=== PATIENT | female | born 1985 | race African-American/Black ===

== ENCOUNTER 2016-12-08 07:46 | Emergency (ER) | payer OTHER, BC ==
[~2016-12-08] VITALS: Ht 162.6 cm; Wt 95.0 kg
[~2016-12-08 07:46] MED LIST: DICL50 PO; TAB-TAB PO
[2016-12-08 07:50] VITALS: BP 130/89; PULSE 77; RESP 19; TEMP 97.7; O2SAT 100
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
[2016-12-08] MEDS ORDERED: MORPHINE SULFATE 4 MG/ML INJ IV PUSH ONE ×3 (09:30→13:00)
[2016-12-08] MEDS ORDERED: ONDANSETRON HCL 4 MG/2 ML VIAL IV PUSH ONE (09:30)
[2016-12-08 10:25] VITALS: BP 113/50; PULSE 80; RESP 18; O2SAT 100
[2016-12-08 10:43] LABS: AUTOMATED NEUTROPHIL # 13.9 TH/MM3 (1.8-7.7); BASOPHIL % 0.1 % (0.0-2.0); HEMO FLAGS DIFF FINAL; LYMPH % 3.8 % (9.0-44.0); LYMPHOCYTE # 0.6 TH/MM3 (1.0-4.8); MEAN CELL VOLUME 83.6 FL (80.0-100.0); MEAN CORPUSCULAR HGB CONC 33.4 % (32.0-36.0); MONO % 4.4 % (0.0-8.0); NEUT % 91.7 % (16.0-70.0); PLATELET COUNT 212 TH/MM3 (150-450); RED BLOOD COUNT 4.19 MIL/MM3 (4.00-5.30); RED CELL DISTRIBUTION WIDTH 14.8 % (11.6-17.2); WHITE BLOOD COUNT 15.2 TH/MM3 (4.0-11.0)
[2016-12-08 11:53] LABS: ANION GAP 10 MEQ/L (5-15); AST (GOT) 26 U/L (15-37); BICARBONATE 24.5 MEQ/L (21.0-32.0); BLOOD UREA NITROGEN 7 MG/DL (7-18); CHLORIDE 101 MEQ/L (98-107); GLOMERULAR FILTRATION RATE 111 ML/MIN (>89); POTASSIUM 3.5 MEQ/L (3.5-5.1); SODIUM (NA) 135 MEQ/L (136-145)
[2016-12-08 11:58] LABS: ALKALINE PHOSPHATASE 64 U/L (45-117); ALT (GPT) 23 U/L (10-53); BETA HCG QUANT LESS THAN 1 MIU/ML (0-5); TOTAL BILIRUBIN ADULT 0.4 MG/DL (0.2-1.0)
[2016-12-08 12:00] VITALS: BP 128/66; PULSE 74; RESP 16; O2SAT 98
[2016-12-08] MEDS ORDERED: PERI8.6T PO (12:51)
[2016-12-08] MEDS ORDERED: PERC5TAB12 PO (12:51)
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
[2016-12-09] MEDS ORDERED: IBUP800T23 PO (20:38)
== END 2016-12-08 13:41 | disposition home or self-care (01) ==
LOC: NEPC 07:46
DX: S92.014A Nondisplaced fracture of body of right calcaneus, initial encounter for closed fracture (principal); V48.0XXA Car driver injured in noncollision transport accident in nontraffic accident, initial encounter
CPT/HCPCS: 72125; 73610; 73700; 80053; 84702; 85025; 96374; 96375; 96376; 99284; E0113; J2270; J2405

== ENCOUNTER 2016-12-09 19:36 | Emergency (ER) | payer OTHER, BC ==
[~2016-12-09] VITALS: Ht 162.6 cm; Wt 93.0 kg
[~2016-12-09 19:36] MED LIST changes: -DICL50 PO; +PERC5TAB12 PO; +PERI8.6T PO; -TAB-TAB PO
[2016-12-09 19:38] VITALS: BP 118/72; PULSE 99; RESP 18; TEMP 98; O2SAT 98
[2016-12-09] MEDS ORDERED: KETOROLAC TROMETHAMINE 60 MG/2 ML (IM) VIAL IM ONE (20:30)
[2016-12-09] MEDS ORDERED: IBUP800T23 PO (20:38)
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
[2016-12-09 20:54] VITALS: BP 120/70
== END 2016-12-09 21:01 | disposition home or self-care (01) ==
LOC: NEPC 19:36
DX: S92.001D Unspecified fracture of right calcaneus, subsequent encounter for fracture with routine healing (principal); R01.1 Cardiac murmur, unspecified; X58.XXXD Exposure to other specified factors, subsequent encounter
CPT/HCPCS: 96372; 99283; E0113; J1885

== ENCOUNTER 2016-12-12 15:34 | Emergency (ER) | payer OTHER, BC ==
[~2016-12-12] VITALS: Ht 162.6 cm; Wt 100.0 kg
[~2016-12-12 15:34] MED LIST changes: +IBUP800T23 PO
[2016-12-12 15:35] VITALS: BP 111/57; PULSE 81; RESP 12; TEMP 98.6; O2SAT 99
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
[2016-12-12] MEDS ORDERED: PERC5TAB12 PO (16:30)
[2016-12-12] MEDS ORDERED: oxyCODONE/ACETAMINOPHEN 5 MG/325 MG TAB PO ONE (16:45)
[2016-12-12] MEDS ORDERED: oxyCODONE/ACETAMINOPHEN 10 MG/325 MG TAB PO ONE (16:45)
== END 2016-12-12 16:51 | disposition home or self-care (01) ==
LOC: NEPB 15:34
DX: S92.001D Unspecified fracture of right calcaneus, subsequent encounter for fracture with routine healing (principal); R20.9 Unspecified disturbances of skin sensation; R01.1 Cardiac murmur, unspecified; V49.9XXD Car occupant (driver) (passenger) injured in unspecified traffic accident, subsequent encounter
CPT/HCPCS: 99283

== ENCOUNTER 2016-12-18 05:42 | Inpatient (IN) | payer OTHER, BC ==
[~2016-12-18] VITALS: Ht 162.6 cm; Wt 102.4 kg
[2016-12-18] MEDS ORDERED: VANCOMYCIN 1000 MG/NS 250 ML (for <70 kg) IV SCH ×2 (06:30)
[2016-12-18] MEDS: CHLORHEXIDINE GLUCONATE 4% SOLN 120 ML BTL TOP SCH (06:30)
[2016-12-18] MEDS ORDERED: ceFAZolin 2 GM PREMIX 50 ML IV SCH (06:30)
[2016-12-18] MEDS ORDERED: SODIUM CHLORID 0.9% 500 ML IV SCH (06:45)
[2016-12-18] MEDS ORDERED: INSULIN HUMAN REGULAR 1,000 UNITS/10 ML VIAL SQ PRN (06:45)
[2016-12-18] MEDS ORDERED: LACTATED RINGER'S 1000 ML IV SCH (06:45)
[2016-12-18] MEDS ORDERED: METOPROLOL TARTRATE 25 MG TAB PO PRN (06:45)
[2016-12-18 07:11] VITALS: BP 120/72; PULSE 78; RESP 16; TEMP 98.7; O2SAT 100
[2016-12-18] MEDS ORDERED: PERC7.5T13 PO (07:40)
[2016-12-18] MEDS ORDERED: XARE10TA PO (07:40)
[2016-12-18] MEDS ORDERED: WALKER/ADULT/FO1 MIS (07:40)
[2016-12-18] MEDS ORDERED: FAMOTIDINE 20 MG/2 ML VIAL ONE (08:25)
[2016-12-18] MEDS ORDERED: MIDAZOLAM HCL 2 MG/2 ML VIAL ONE (08:25)
[2016-12-18] MEDS ORDERED: DEXAMETHASONE SOD PHOS 4 MG/ML VIAL ONE (08:25)
[2016-12-18] MEDS ORDERED: ceFAZolin INJ 1,000 MG VIAL IV ONE (09:13)
[2016-12-18] MEDS ORDERED: GENTAMICIN SULFATE 80 MG/2 ML VIAL IRRIGATION ONE (09:29)
--- NOTE | 2016-12-18 10:34 | EKG ---
Date Performed: 12/18/2016 Time Performed: 07:57:44 PTAGE: 31 years EKG: Sinus rhythm NORMAL ECG NO PREVIOUS TRACING DOCTOR: Sergio Solares Interpretating Date/Time 12/18/2016 10:32:40
[2016-12-18] MEDS ORDERED: SODIUM CHLORIDE 0.9% FLUSH 5 ML FLUSH IVF PRN (11:15)
[2016-12-18] MEDS ORDERED: ONDANSETRON HCL 4 MG/2 ML VIAL IVP PRN (11:15)
[2016-12-18] MEDS ORDERED: NALOXONE HCL 0.4 MG/ML AMP IV PRN (11:15)
[2016-12-18] MEDS ORDERED: ACETAMINOPHEN/HYDROcodone 325 MG/10 MG TAB PO PRN (11:15)
[2016-12-18] MEDS ORDERED: Post-op Orders (for Pharmacy) MISC XX ONE (11:15)
[2016-12-18] MEDS ORDERED: diphenhydrAMINE HCL 25 MG CAP PO PRN ×2 (11:15)
--- NOTE | 2016-12-18 11:16 | PD.OP ---
cc: Rei Kent MD Operative Report Date of Surgery: Dec 18, 2016 Preoperative Diagnosis: Comminuted right calcaneus fracture Postoperative Diagnosis: Procedure: Open reduction internal fixation right calcaneus Anesthesia: Gen. Surgeon: Rei Kent Trauma Doctor(s): ROBY Rojo PA-C The surgical procedure was assisted by my physician gallery assistant. My P.A. presence was necessary throughout this case for the manipulation and positioning of the surgical extremity. My P.A. was assisting me throughout the duration of this procedure. The skill set of a physician gallery assistant was medically necessary to complete this procedure. During the surgical case the surgical technician was working at the back table and the physician gallery assistant was directly assisting me. Operation and Findings: Tourniquet time -- 73 minutes at 250 mmHg Informed consent obtained, operative site was marked. The foot and ankle were seen and evaluated this morning. Soft tissue swelling had significantly improved and appeared to be ready for surgery. She was brought to the operating room and placed on the operating room table. She was given intravenous sedation , general endotracheal anesthesia. She received IV antibiotics and was placed in the lateral decubitus position. Foot and leg were prepped with alcohol, followed by Hibiclens, draped in usual sterile fashion. A time out procedure was preformed. The procedure began with a 4 centimeter incision over the lateral aspect of the calcaneus centers over the subtalar joint. A full thickness flap was carefully elevated. The perineal tendons were also mobilized. Periosteum was elevated off the calcaneous. At this point the leg was elevated. The tourniquet was inflated. Attention was now turned to exposure of the calcaneus. The lateral wall was comminuted. A Steinmann pin was placed into the talus and into the calcaneus. Laminar management trainee marketing was now placed to help distract the fracture. Articular surface was now visualized. Articular surface was in several fragments. The medial fragment was elevated and reduced up to the talus and the K-wire was used to hold provisional fixation. Next, the lateral and posterior fragments of the posterior facet were reduced. The talus was used as a template for reduction. The K-wires were used to hold provisional fixation. The laminar management trainee marketing was now used to distract the posterior tuberosity. A Shands pin was placed to help joystick the centrex radio operator tuberosity into appropriate position. Multiple K-wires result provisional fixation. Multiplanar fluoroscopy confirmed well aligned fracture. The anterior process was now reduced. This keyed into appropriate position. Additional K wires were used to hold provisional fixation. At this point a Synthes calcaneus plate was selected. Plate was placed underneath the peroneal tendons. Plate was provisionally held the bone with K wires. 2.7 cortical lag screws were placed through the plate to compress the posterior facet fragments. Good compression was obtained. Additional cortical and locking screws were placed into the plate. 4 small percutaneous incisions were made around the posterior heel. 4 long 3.5 cortical screws were placed in the posterior tuberosity into the anterior process. All screws were predrilled and premeasured for appropriate lengths. Fluoroscopy confirmed appropriate alignment of fracture. Final fluoroscopy confirmed well aligned fracture with well-placed hardware. Wound was thoroughly irrigated. Tourniquet was released. Hemostasis was confirmed. Fascia was closed with 0 Vicryl, subcutaneous tissues closed with 3-0 Vicryl, and skin was closed with 3-0 nylon. Sterile dressings were applied. Patient was placed into a well molded well-padded splint. Patient was transferred to recovery in stable condition. Rei Kent MD Dec 18, 2016 11:16
[2016-12-18] MEDS ORDERED: *morphine SULFATE 8 MG/ML PERIprocedure ONLY ONE (11:40)
[2016-12-18] MEDS ORDERED: MORPHINE SULFATE 4 MG/ML INJ ONE (11:45)
[2016-12-18] MEDS ORDERED: DO NOT ADM ANY ANTICOAGULANT DRUGS XX PRN (11:45)
[2016-12-18] MEDS ORDERED: fentaNYL CITRATE 250 MCG/5 ML AMP ONE ×2 (11:45)
[2016-12-18] MEDS ORDERED: *MEPERIDINE 25 MG INJ VIAL PERIprocedural Use ONLY ONE (11:47)
[2016-12-18] MEDS: KETOROLAC TROMETHAMINE 60 MG/2 ML (IM) VIAL IM SCH ×2 (12:00→17:43)
[2016-12-18] MEDS ORDERED: PROPOFOL 200 MG/20 ML AMP IV ONE (12:00)
[2016-12-18] MEDS ORDERED: LACTATED RINGER'S 1000 ML INJ 1,000 ML IV ONE (12:00)
[2016-12-18] MEDS ORDERED: ONDANSETRON HCL 4 MG/2 ML VIAL IV PUSH ONE (12:00)
[2016-12-18] MEDS: MORPHINE SULFATE 30 MG/30 ML PCA IV SCH (12:19)
[2016-12-18] MEDS: LACTATED RINGER'S 1000 ML INJ 1,000 ML IV SCH ×2 (13:55→22:28)
[2016-12-18] MEDS: PCA - TOTAL MG MORPHINE DELIVERED PER SHIFT SCH ×2 (14:00→22:00)
[2016-12-18 14:45] VITALS: BP 115/60; PULSE 84; RESP 16; TEMP 96.8; O2SAT 100
--- NOTE | 2016-12-18 14:45 | RADRPT ---
EXAM DATE/TIME: 12/18/2016 10:52 [facility] COMPARISON: No previous studies available for comparison. INDICATIONS : ORIF right calcaneus. MEDICAL HISTORY : None. SURGICAL HISTORY : None. ENCOUNTER: Subsequent ACUITY: 1 week PAIN SCORE: Non-responsive. LOCATION: Right heel. FINDINGS: Surgical hardware is seen at the calcaneus. The hardware appears well placed. The sub talar joint appears normally aligned. CONCLUSION: Successful open reduction and internal fixation of a calcaneal fracture. Donnie Sosa MD on December 18, 2016 at 14:38 Board Certified Radiologist. This report was verified electronically.
[2016-12-18 16:15] VITALS: BP 122/73; PULSE 78; PULSE 80; RESP 16; TEMP 97.4; O2SAT 97
[2016-12-18] MEDS: ceFAZolin 2 GM PREMIX 50 ML IV SCH (17:43)
[2016-12-18 20:00] VITALS: BP 111/59; PULSE 96; RESP 16; TEMP 97.3; O2SAT 100
[2016-12-18] MEDS: SODIUM CHLORIDE 0.9% FLUSH 5 ML FLUSH IVF SCH (21:00)
[2016-12-18] MEDS: VANCOMYCIN INJ 1,000 MG in SODIUM CHLOR 0.9% 250 ML INJ 250 ML IV SCH (22:28)
[2016-12-19] VITALS (7 sets, daily range): BP systolic 104–118; BP diastolic 55–67; PULSE 79–93; RESP 16–18; TEMP 96.4–100; O2SAT 97–100
[2016-12-19] MEDS: KETOROLAC TROMETHAMINE 60 MG/2 ML (IM) VIAL IM SCH ×4 (00:25→18:04)
[2016-12-19] MEDS: ceFAZolin 2 GM PREMIX 50 ML IV SCH ×4 (00:26→23:41)
[2016-12-19] MEDS: PCA - TOTAL MG MORPHINE DELIVERED PER SHIFT SCH ×4 (06:00→23:40)
[2016-12-19] MEDS: CHLORHEXIDINE GLUCONATE 4% SOLN 120 ML BTL TOP SCH ×2 (06:30→23:41)
[2016-12-19] MEDS: MORPHINE SULFATE 30 MG/30 ML PCA IV SCH (06:37)
--- NOTE | 2016-12-19 07:02 | PD.ORT.PN ---
Subjective Subjective Remarks Difficulty with pain control. Has been using pain pump, has not begun taking oral pain medication Objective Vitals Vital Signs Date Time Temp Pulse Resp B/P Pulse Ox O2 Delivery O2 Flow Rate FiO2 12/19/16 04:00 97.1 84 17 105/65 100 12/19/16 00:00 98.0 93 16 113/67 100 12/18/16 20:00 97.3 96 16 111/59 100 12/18/16 16:15 97.4 80 16 122/73 97 12/18/16 14:45 96.8 84 16 115/60 100 12/18/16 14:15 98.1 80 16 135/80 99 Nasal Cannula 3 12/18/16 14:00 85 15 134/83 99 Nasal Cannula 3 12/18/16 13:30 87 15 127/81 99 Nasal Cannula 3 12/18/16 13:00 92 17 136/85 99 Nasal Cannula 3 12/18/16 12:30 100 17 144/92 99 Nasal Cannula 3 12/18/16 12:19 15 12/18/16 12:15 100 16 133/85 99 Nasal Cannula 3 12/18/16 12:00 96 16 136/86 99 Nasal Cannula 3 12/18/16 11:45 97 15 138/86 100 Nasal Cannula 3 12/18/16 11:38 97.8 97 15 138/86 100 Nasal Cannula 3 12/18/16 07:11 98.7 78 16 120/72 100 I/O 12/18/16 12/18/16 12/18/16 12/19/16 12/19/16 12/19/16 07:00 15:00 23:00 07:00 15:00 23:00 Intake Total 1675 ml 1615 ml 1018 ml Output Total 1050 ml Balance 625 ml 1615 ml 1018 ml Intake Oral 720 ml 480 ml IV Total 175 ml 895 ml 538 ml Other 1500 ml Output Urine Total 1000 ml Estimated Blood Loss 50 ml # Voids 1 1 2 # Bowel Movements 0 0 Imaging Last 72 hours Impressions Foot X-Ray 12/18/16 0000 Signed Impressions: Service Date/Time: Sunday, December 18, 2016 10:52 - CONCLUSION: Successful open reduction and internal fixation of a calcaneal fracture. Donnie Sosa MD Objective Remarks Right lower extremity: Splint intact with minimal drainage. Intact sensation in toes. Capillary refills. Is able to move toes but limited by pain. Assessment & Plan Assessment and Plan Right calcaneus ORIF POD 1 Nonweightbearing and elevation Maintain splint Begin oral pain medications Plan for possible discharge tomorrow to home Elevation RAMESH ZIEGLER PA-C Dec 19, 2016 07:02
[2016-12-19] MEDS: LACTATED RINGER'S 1000 ML INJ 1,000 ML IV SCH ×3 (07:07→23:40)
[2016-12-19] MEDS: SODIUM CHLORIDE 0.9% FLUSH 5 ML FLUSH IVF SCH ×2 (08:01→20:32)
[2016-12-19] MEDS: VANCOMYCIN INJ 1,000 MG in SODIUM CHLOR 0.9% 250 ML INJ 250 ML IV SCH (08:01)
[2016-12-19] MEDS ORDERED: INFLUENZA VIRUS VACCINE (QUADRIVALENT) 0.5 ML SYR IM ONE (10:00)
[2016-12-19] MEDS: ACETAMINOPHEN/HYDROcodone 325 MG/10 MG TAB PO PRN ×2 (12:37→18:43)
[2016-12-19] MEDS: MORPHINE SULFATE 4 MG/ML INJ IV PUSH PRN (23:42)
[2016-12-20 00:28] VITALS: BP 104/70; PULSE 82; RESP 16; TEMP 96.9; O2SAT 100
[2016-12-20] MEDS: ACETAMINOPHEN/HYDROcodone 325 MG/10 MG TAB PO PRN ×5 (01:10→23:07)
--- NOTE | 2016-12-20 06:30 | PD.ORT.PN ---
Subjective Subjective Remarks POD 2 s/p ORIF right calcaneus doing well. states that she "slept on it wrong" last night and is now having pain. otherwise, out of bed with walker Objective Vitals Vital Signs Date Time Temp Pulse Resp B/P Pulse Ox O2 Delivery O2 Flow Rate FiO2 12/20/16 00:28 96.9 82 16 104/70 100 12/19/16 20:00 100.0 84 17 118/64 100 12/19/16 16:00 96.5 79 18 107/55 100 12/19/16 14:31 16 12/19/16 14:30 16 12/19/16 14:00 16 12/19/16 12:37 100 21 12/19/16 11:56 96.4 88 18 104/56 97 12/19/16 09:41 16 12/19/16 08:00 97.4 89 18 118/56 98 I/O 12/19/16 12/19/16 12/19/16 12/20/16 12/20/16 12/20/16 07:00 15:00 23:00 07:00 15:00 23:00 Intake Total 1018 ml 960 ml 573 ml Balance 1018 ml 960 ml 573 ml Intake Oral 480 ml 960 ml 480 ml IV Total 538 ml 93 ml # Voids 2 4 4 # Bowel Movements 0 0 2 Imaging Last 72 hours Impressions Foot X-Ray 12/18/16 0000 Signed Impressions: Service Date/Time: Sunday, December 18, 2016 10:52 - CONCLUSION: Successful open reduction and internal fixation of a calcaneal fracture. Donnie Sosa MD Objective Remarks Right lower extremity: Splint intact with minimal drainage. Intact sensation in toes. Capillary refills. Is able to move toes but limited by pain. Assessment & Plan Assessment and Plan 1) Right calcaneus s/p ORIF POD 2 Nonweightbearing and elevation Maintain splint Begin oral pain medications Plan for possible discharge today f/u with Krystal or MANOJ in 2 weeks Marcellus Parra Dec 20, 2016 06:30
--- NOTE | 2016-12-20 06:39 | HHI.DS ---
Discharge Summary Admission Date Dec 18, 2016 at 12:06 Discharge Date: Dec 20, 2016 Admitting Diagnosis Right calcaneus fracture Diagnosis: (1) Calcaneus fracture, right Diagnosis: Principal Procedures ORIF right calcaneus PE at Discharge Right lower extremity: Splint intact with minimal drainage. Intact sensation in toes. Capillary refills. Is able to move toes but limited by pain. Hospital Course Admitted from outpatient for an ORIF of right calcaneus after suffering a fall the latter. She tolerated the procedure well. She was admitted to [address] [place] [address]. She is remaining nonweightbearing on the right leg. She has significant pain postop day 1. However, possibly due to the pain had improved. She is angling with a walker, retaining her splint and nonweightbearing status, hemodynamically stable, and fit for discharge home. She will be discharged home today and remain nonweightbearing. I advised her to elevate the foot as much as possible. She'll follow up in office with Dr. Kent or his PA and 2 weeks. Pt Condition on Discharge: Good Discharge Disposition: Discharge Home Discharge Instructions Diet Instructions: As Tolerated, No Restrictions Activities You Can Perform: Non Weight Bearing Follow up Referrals: Orthopedics - 01/01/17 @ [facility] with Rei Kent MD New Medications: Oxycodone-Acetaminophen (Percocet) 7.5-325 mg Tab 1 TAB PO Q4H PRN PAIN #60 Ref 0 TAB Rivaroxaban (Xarelto) 10 Mg Tab 10 MG PO DAILY Blood Clot Prevention #14 Ref 0 TAB Walker/Adult/Folding (Walker/Adult/Folding) 1 Mis Mis 1 EA .ROUTE DIRECTED #1 Ref 0 EA Continued Medications: Sennosides-Docusate Sodium (Karley-Colace) 8.6-50 Mg Tab 1 TAB PO BID Constipation #20 Ref 0 TAB Discontinued Medications: Ibuprofen (Ibuprofen) 800 Mg Tab 800 MG PO Q6HR PRN PAIN Days 7 Ref 0 TAB Oxycodone-Acetaminophen (Percocet) 5-325 mg Tab 1-2 TAB PO Q4H PRN PAIN #30 Ref 0 TAB Marcellus Parra Dec 20, 2016 06:39
[2016-12-20] MEDS: ceFAZolin 2 GM PREMIX 50 ML IV SCH (07:47)
[2016-12-20] MEDS: SODIUM CHLORIDE 0.9% FLUSH 5 ML FLUSH IVF SCH ×2 (07:47→20:04)
[2016-12-20 07:53] VITALS: BP 145/63; PULSE 100; RESP 18; TEMP 98.9; O2SAT 100
[2016-12-20] MEDS: MORPHINE SULFATE 4 MG/ML INJ IV PUSH PRN (11:38)
[2016-12-20] MEDS: LACTATED RINGER'S 1000 ML INJ 1,000 ML IV SCH ×2 (11:43→20:04)
[2016-12-20 12:00] VITALS: BP 120/64; PULSE 100; RESP 18; TEMP 97.1; O2SAT 100
[2016-12-20] MEDS ORDERED: ACETAMINOPHEN/HYDROcodone 325 MG/10 MG TAB PO PRN (13:30)
[2016-12-20] MEDS: PCA - TOTAL MG MORPHINE DELIVERED PER SHIFT SCH ×2 (13:34→20:04)
[2016-12-20 16:00] VITALS: BP 118/72; PULSE 100; RESP 18; TEMP 97.1; O2SAT 100
[2016-12-20 21:10] VITALS: BP 116/71; PULSE 109; RESP 17; TEMP 97.8; O2SAT 100
[2016-12-21 00:45] VITALS: BP 121/60; PULSE 95; RESP 16; TEMP 97.5; O2SAT 100
[2016-12-21] MEDS: ACETAMINOPHEN/HYDROcodone 325 MG/10 MG TAB PO PRN ×4 (03:08→13:13)
[2016-12-21] MEDS: PCA - TOTAL MG MORPHINE DELIVERED PER SHIFT SCH ×2 (03:18→14:00)
[2016-12-21] MEDS ORDERED: HYDR-3366 PO (06:27)
--- NOTE | 2016-12-21 06:34 | PD.ORT.PN ---
Subjective Subjective Remarks Doing well with pain control. No other complaints Objective Vitals Vital Signs Date Time Temp Pulse Resp B/P Pulse Ox O2 Delivery O2 Flow Rate FiO2 12/21/16 00:45 97.5 95 16 121/60 100 12/20/16 21:10 97.8 109 17 116/71 100 12/20/16 16:00 97.1 100 18 118/72 100 12/20/16 12:00 97.1 100 18 120/64 100 12/20/16 07:53 98.9 100 18 145/63 100 I/O 12/20/16 12/20/16 12/20/16 12/21/16 12/21/16 12/21/16 07:00 15:00 23:00 07:00 15:00 23:00 Intake Total 480 ml 600 ml 480 ml Balance 480 ml 600 ml 480 ml Intake Oral 480 ml 600 ml 480 ml # Voids 2 6 3 # Bowel Movements 0 0 0 Imaging Last 72 hours Impressions Foot X-Ray 12/18/16 0000 Signed Impressions: Service Date/Time: Sunday, December 18, 2016 10:52 - CONCLUSION: Successful open reduction and internal fixation of a calcaneal fracture. Donnie Sosa MD Procedures ORIF right calcaneus Objective Remarks Right lower extremity: Splint intact with minimal drainage. Intact sensation in toes. Capillary refills. Is able to move toes but limited by pain. Assessment & Plan Problem List: (1) Calcaneus fracture, right Assessment and Plan 1) Right calcaneus s/p ORIF POD 3 Nonweightbearing and elevation Maintain splint oral pain medications Plan for discharge today f/u with Krystal or MANOJ in 2 weeks RAMESH ZIEGLER PA-C Dec 21, 2016 06:34
[2016-12-21 08:00] VITALS: BP 118/69; PULSE 95; RESP 19; TEMP 98.1; O2SAT 99
[2016-12-21] MEDS: SODIUM CHLORIDE 0.9% FLUSH 5 ML FLUSH IVF SCH (08:51)
[2016-12-21] MEDS: LACTATED RINGER'S 1000 ML INJ 1,000 ML IV SCH (09:07)
[2016-12-21 12:00] VITALS: BP 124/75; PULSE 88; RESP 19; TEMP 97.6; O2SAT 100
== END 2016-12-21 15:54 | disposition home or self-care (01) | DRG 505 ==
LOC: HSDC 05:42 → HSDI 12:06 → N06A 15:18
PROVIDERS: ADMIT Orthopaedic Surgery Orthopaedic Trauma; ATTEND Orthopaedic Surgery Orthopaedic Trauma
PROC: 0QSL04Z Reposition Right Tarsal with Internal Fixation Device, Open Approach (ICD-10-PCS; principal; 2016-12-18 08:44)
DX: S92.001A Unspecified fracture of right calcaneus, initial encounter for closed fracture (principal); V49.9XXA Car occupant (driver) (passenger) injured in unspecified traffic accident, initial encounter
CPT/HCPCS: 73650; 76000; 90471; 90686; 93005; 94150; C1713; G0008; J0690; J1100; J1580; J1885; J2175; J2250; J2270; J2405; J3010; J3370; J7050; J7120; Q2038

== ENCOUNTER 2017-05-18 06:23 | Emergency (ER) | payer BC ==
[~2017-05-18] VITALS: Ht 165.1 cm; Wt 80.0 kg
[~2017-05-18 06:23] MED LIST changes: +HYDR-3366 PO; -IBUP800T23 PO; -PERC5TAB12 PO; +PERC7.5T13 PO; +WALKER/ADULT/FO1 MIS; +XARE10TA PO
[2017-05-18 06:28] VITALS: BP 112/64; PULSE 97; RESP 16; TEMP 98.4; O2SAT 97
--- NOTE | 2017-05-18 06:41 | PD ---
HPI Chief Complaint: Abdominal Pain Time Seen by Provider: 06:31 Travel History International Travel<30 days: No Contact w/Intl Traveler<30days: No Traveled to known affect area: No History of Present Illness HPI 31-year-old at approximately 11 weeks 1 day here with complaint of abdominal pain. Patient has had 2 days of a crampy pain within the lower abdomen. This is intermittent. She states it feels like gaseous distention as though she needs have flatus but does not. She denies any severe cramps like menstrual period, vaginal bleeding or spotting. No fevers chills, urinary symptoms PFSH Past Medical History Cancer: No Cardiovascular Problems: Yes (HEART MURMUR) Diabetes: No Diminished Hearing: No Endocrine: No Genitourinary: No Hepatitis: No Hiatal Hernia: No Immune Disorder: No Musculoskeletal: No Neurologic: No Psychiatric: No Reproductive: No Respiratory: No Thyroid Disease: No ?: : 1 Para: 1 Ovarian Cysts: Yes Past Surgical History AICD: No Section: Yes (X1) Gynecologic Surgery: Yes (C SECTION) Joint Replacement: No Oral Surgery: Yes (WISDOM TEETH) Pacemaker: No Social History Alcohol Use: Yes (OCCASIONAL) Tobacco Use: No Substance Use: No Allergies-Medications (Allergen,Severity, Reaction): Coded Allergies: No Known Allergies (Unverified , 05/18/17) Reported Meds & Prescriptions Reported Meds & Active Scripts Active [place] (Hydrocodone-Acetaminophen) 10-325 Mg Tab 1 Tab PO Q3HR PRN Xarelto (Rivaroxaban) 10 Mg Tab 10 Mg PO DAILY Percocet (Oxycodone-Acetaminophen) 7.5-325 mg Tab 1 Tab PO Q4H PRN Walker/Adult/Folding (Device) 1 Mis Mis 1 Ea .ROUTE DIRECTED Karley-Colace (Sennosides-Docusate Sodium) 8.6-50 Mg Tab 1 Tab PO BID Review of Systems Except as stated in HPI: all other systems reviewed are Neg Physical Exam Narrative GENERAL: Well-appearing female in no acute distress SKIN: Focused skin assessment warm/dry. HEAD: Normocephalic. EYES: . No scleral icterus. No injection or drainage. NECK: Supple CARDIOVASCULAR: Regular rate and rhythm. RESPIRATORY: No accessory muscle use. GASTROINTESTINAL: Abdomen soft, non-tender, nondistended. MUSCULOSKELETAL: Normal gait NEUROLOGICAL: Awake and alert. Normal speech. PSYCHIATRIC: Appropriate mood and affect; insight and judgment normal. Data Data Last Documented VS Vital Signs Date Time Temp Pulse Resp B/P Pulse Ox O2 Delivery O2 Flow Rate FiO2 05/18/17 06:28 98.4 97 16 112/64 97 Room Air Orders Ed Poc Ultrasound (05/18/17 ) MDM Medical Decision Making Medical Screen Exam Complete: Yes Emergency Medical Condition: Yes Medical Record Reviewed: Yes Differential Diagnosis 31-year-old at 11 weeks 1 days here with complaint of gaseous-type abdominal cramping. Differential includes , threatened AB, subchorionic hemorrhage, constipation, gas. Less likely ectopic given report of previous first trimester ultrasound. Abdominal examination is benign making peritoneal pathology less likely. Narrative Course Bedside ultrasound performed showing active IUP with heart rate. Patient reassured and discharged home Procedures Procedure Narrative Emergency Department Pelvic ultrasound was performed with patient consent. The curvilinear probe was used in the transverse and sagittal views within the suprapubic region revealing an intrauterine . heart rate was 170s. Diagnosis Primary Impression: Abdominal pain affecting Referrals: [facility] as needed Med/Other Pt SpecificInfo: No Change to Meds Disposition: 01 DISCHARGE HOME Condition: Stable Talia Menendez MD May 18, 2017 06:40
== END 2017-05-18 07:05 | disposition home or self-care (01) ==
LOC: NEPE 06:23
DX: O26.891 Other specified pregnancy related conditions, first trimester (principal); R10.33 Periumbilical pain; Z3A.11 11 weeks gestation of pregnancy
CPT/HCPCS: 99282

== ENCOUNTER 2017-06-01 03:08 | Emergency (ER) | payer BC ==
[~2017-06-01] VITALS: Ht 162.6 cm; Wt 97.6 kg
[2017-06-01 03:12] VITALS: BP 107/69; PULSE 79; TEMP 97.5; O2SAT 100
[2017-06-01] MEDS ORDERED: SODIUM CHLOR 0.9% 1000 ML INJ 1,000 ML IV ONE (04:08)
[2017-06-01] MEDS ORDERED: SODIUM CHLORIDE 0.9% FLUSH 10 ML FLUSH IVF PRN (04:15)
[2017-06-01 04:44] LABS: AUTOMATED NEUTROPHIL # 8.8 TH/MM3 (1.8-7.7); BASOPHIL % 0.3 % (0.0-2.0); EOSINOPHIL % 0.1 % (0.0-4.0); HEMATOCRIT 41.3 % (35.0-46.0); HEMO FLAGS DIFF FINAL; LYMPH % 8.8 % (9.0-44.0); LYMPHOCYTE # 0.9 TH/MM3 (1.0-4.8); MEAN CORPUSCULAR HGB CONC 33.3 % (32.0-36.0); MONO % 5.3 % (0.0-8.0); NEUT % 85.5 % (16.0-70.0); PLATELET COUNT 193 TH/MM3 (150-450); RED BLOOD COUNT 4.75 MIL/MM3 (4.00-5.30); WHITE BLOOD COUNT 10.3 TH/MM3 (4.0-11.0)
[2017-06-01] MEDS ORDERED: PROM25TA10 PO (04:53)
--- NOTE | 2017-06-01 04:53 | PD ---
HPI Chief Complaint: Abdominal Pain Time Seen by Provider: 04:07 Travel History International Travel<30 days: No Contact w/Intl Traveler<30days: No Traveled to known affect area: No History of Present Illness HPI Patient is a 31-year-old female who is 13 weeks with her second child, presents to emergency room with complaints of nausea and vomiting as well as left-sided neck pain since this morning. Reports that for the past couple days , she has had morning sickness, reports that she does not have any medications for nausea. Patient reports that she did see Dr. Busby who is her [employer], and she did have her 10 week ultrasound which showed a normal IUP. Patient reports no vaginal discharge or bleeding, reports that she is having some abdominal cramping. Patient reports that she was meaning to ask Dr. Busby for antiemetics on her next appointment. Patient also reports that she woke up this morning with a stiff neck. Reports that she has pain to the left side of her neck and reports "my neck feels stuck." Reports that this happens every 6 months or so. Denies any trauma. Denies fever/chills. Denies headache/dizzyness. PFSH Past Medical History Cancer: No Cardiovascular Problems: Yes (MURMUR) Diabetes: No Diminished Hearing: No Endocrine: No Genitourinary: No Hepatitis: No Hiatal Hernia: No Immune Disorder: No Musculoskeletal: No Neurologic: No Psychiatric: No Reproductive: No Respiratory: No Thyroid Disease: No ?: LMP: 03/02/17 : 2 Para: 1 Ovarian Cysts: Yes Past Surgical History AICD: No Section: Yes (X1) Gynecologic Surgery: Yes (C SECTION) Joint Replacement: No Oral Surgery: Yes (WISDOM TEETH) Pacemaker: No Other Surgery: Yes Social History Alcohol Use: No Tobacco Use: No Substance Use: No Allergies-Medications (Allergen,Severity, Reaction): Coded Allergies: No Known Allergies (Unverified , 06/01/17) Reported Meds & Prescriptions Reported Meds & Active Scripts Active Macrobid (Nitrofurantoin Monoh/Nitrofur Macro) 100 Mg Cap 100 Mg PO BID 10 Days Phenergan (Promethazine HCl) 25 Mg Tablet 25 Mg PO Q6H PRN Review of Systems General / Constitutional: No: Fever Eyes: No: Visual changes HENT: Positive: Neck Stiffness, No: Headaches Cardiovascular: No: Chest Pain or Discomfort Respiratory: No: Shortness of Breath Gastrointestinal: Positive: Nausea, Vomiting, Abdominal Pain Genitourinary: No: Urgency, Frequency, Dysuria, Nocturia, Pelvic Pain, Flank Pain, Vaginal Bleeding Musculoskeletal: No: Pain Skin: No Rash Neurologic: No: Weakness Psychiatric: No: Depression Endocrine: No: Polydipsia Hematologic/Lymphatic: No: Easy Bruising Physical Exam Narrative GENERAL: nad SKIN: Focused skin assessment warm/dry. HEAD: Atraumatic. Normocephalic. EYES: Pupils equal and round. No scleral icterus. No injection or drainage. ENT: No nasal bleeding or discharge. Mucous membranes pink and moist. NECK: Trachea midline. No JVD. Patient with left-sided paraspinal tenderness, patient with range of motion to neck. Patient with negative Kernig and Brudzinski sign. CARDIOVASCULAR: Regular rate and rhythm. No murmur appreciated. RESPIRATORY: No accessory muscle use. Clear to auscultation. Breath sounds equal bilaterally. GASTROINTESTINAL: Abdomen soft, non-tender, nondistended. Hepatic and splenic margins not palpable. Ultrasound was placed on patient's abdomen, positive IUP with positive FHT's MUSCULOSKELETAL: No obvious deformities. No clubbing. No cyanosis. No edema. NEUROLOGICAL: Awake and alert. No obvious cranial nerve deficits. Motor grossly within normal limits. Normal speech. PSYCHIATRIC: Appropriate mood and affect; insight and judgment normal. Data Data Last Documented VS Vital Signs Date Time Temp Pulse Resp B/P Pulse Ox O2 Delivery O2 Flow Rate FiO2 06/01/17 03:22 16 06/01/17 03:12 97.5 79 107/69 100 Orders Beta Hcg (Quant/Titer) (06/01/17 04:08) Complete Blood Count With Diff (06/01/17 04:08) Comprehensive Metabolic Panel (06/01/17 04:08) Urinalysis - C+S If Indicated (06/01/17 04:08) Iv Access Insert/Monitor (06/01/17 04:08) Heart Tones (06/01/17 04:08) Sodium Chloride 0.9% Flush (Ns Flush) (06/01/17 04:15) Sodium Chlor 0.9% 1000 Ml Inj (Ns 1000 M (06/01/17 04:08) Ed Urine Pregnancytest Poc (06/01/17 04:08) Promethazine (Phenergan) (06/01/17 05:00) Urine Culture (06/01/17 04:20) Ceftriaxone Inj (Rocephin Inj) (06/01/17 06:00) Labs Laboratory Tests Test 06/01/17 04:20 White Blood Count 10.3 TH/MM3 Red Blood Count 4.75 MIL/MM3 Hemoglobin 13.8 GM/DL Hematocrit 41.3 % Mean Corpuscular Volume 87.0 FL Mean Corpuscular Hemoglobin 29.0 PG Mean Corpuscular Hemoglobin 33.3 % Concent Red Cell Distribution Width 15.0 % Platelet Count 193 TH/MM3 Mean Platelet Volume 10.0 FL Neutrophils (%) (Auto) 85.5 % Lymphocytes (%) (Auto) 8.8 % Monocytes (%) (Auto) 5.3 % Eosinophils (%) (Auto) 0.1 % Basophils (%) (Auto) 0.3 % Neutrophils # (Auto) 8.8 TH/MM3 Lymphocytes # (Auto) 0.9 TH/MM3 Monocytes # (Auto) 0.5 TH/MM3 Eosinophils # (Auto) 0.0 TH/MM3 Basophils # (Auto) 0.0 TH/MM3 CBC Comment DIFF FINAL Differential Comment Urine Color YELLOW Urine Turbidity HAZY Urine pH 5.5 Urine Specific [place] 1.033 Urine Protein 30 mg/dL Urine Glucose (UA) NEG mg/dL Urine Ketones NEG mg/dL Urine Occult Blood NEG Urine Nitrite NEG Urine Bilirubin NEG Urine Urobilinogen LESS THAN 2.0 MG/DL Urine Leukocyte Esterase LARGE Urine RBC 41 /hpf Urine WBC /hpf Urine Squamous Epithelial 9 /hpf Cells Urine Renal Epithelial Cells 5 /hpf Urine Calcium Oxalate Crystals MOD /hpf Urine Bacteria OCC /hpf Urine Mucus MOD /lpf Microscopic Urinalysis Comment CULTURE INDICATED Sodium Level 136 MEQ/L Potassium Level 4.3 MEQ/L Chloride Level 103 MEQ/L Carbon Dioxide Level 25.3 MEQ/L Anion Gap 8 MEQ/L Blood Urea Nitrogen 5 MG/DL Creatinine 0.62 MG/DL Estimat Glomerular Filtration 138 ML/MIN Rate Random Glucose 74 MG/DL Calcium Level 9.6 MG/DL Total Bilirubin 0.4 MG/DL Aspartate Amino Transf 46 U/L (AST/SGOT) Alanine Aminotransferase 20 U/L (ALT/SGPT) Alkaline Phosphatase 56 U/L Total Protein 9.1 GM/DL Albumin 3.3 GM/DL Human Chorionic Gonadotropin, [id number] MIU/ML Quant MDM Medical Decision Making Medical Screen Exam Complete: Yes Emergency Medical Condition: Yes Interpretation(s) Vital Signs Date Time Temp Pulse Resp B/P Pulse Ox O2 Delivery O2 Flow Rate FiO2 06/01/17 03:22 16 06/01/17 03:12 97.5 79 107/69 100 Differential Diagnosis Nausea vomiting of , electrolyte abnormality, cervical strain, threatened Narrative Course 31-year-old female who presents to emergency room with multiple complaints. 1) patient reports that she woke up this morning and has a stiff neck, reports pain to her left paraspinal cervical muscles. Patient does have point tenderness to her left sided paraspinal muscles, she has pain with range of motion, patient with most likely cervical muscle strain. Encouraged neck stretching as well as acetaminophen for pain. 2) patient reports that she is 13 weeks with her second child, reports that for the past few days, she's had increased nausea and vomiting, she does not have any antiemetics at home. She did see her [employer], Dr. Busby and did have at positive pelvic ultrasound at 10 weeks showing an IUP with good heart tones, an ultrasound was placed on patient's abdomen today, IUP was identified, patient does have good heart tones. Plan to obtain basic lab work, will give IV fluids, antiemetics. Plan to monitor patient. Laboratory Tests Test 06/01/17 04:20 White Blood Count 10.3 TH/MM3 (4.0-11.0) Red Blood Count 4.75 MIL/MM3 (4.00-5.30) Hemoglobin 13.8 GM/DL (11.6-15.3) Hematocrit 41.3 % (35.0-46.0) Mean Corpuscular Volume 87.0 FL (80.0-100.0) Mean Corpuscular Hemoglobin 29.0 PG (27.0-34.0) Mean Corpuscular Hemoglobin 33.3 % Concent (32.0-36.0) Red Cell Distribution Width 15.0 % (11.6-17.2) Platelet Count 193 TH/MM3 (150-450) Mean Platelet Volume 10.0 FL (7.0-11.0) Neutrophils (%) (Auto) 85.5 % (16.0-70.0) Lymphocytes (%) (Auto) 8.8 % (9.0-44.0) Monocytes (%) (Auto) 5.3 % (0.0-8.0) Eosinophils (%) (Auto) 0.1 % (0.0-4.0) Basophils (%) (Auto) 0.3 % (0.0-2.0) Neutrophils # (Auto) 8.8 TH/MM3 (1.8-7.7) Lymphocytes # (Auto) 0.9 TH/MM3 (1.0-4.8) Monocytes # (Auto) 0.5 TH/MM3 (0-0.9) Eosinophils # (Auto) 0.0 TH/MM3 (0-0.4) Basophils # (Auto) 0.0 TH/MM3 (0-0.2) CBC Comment DIFF FINAL Differential Comment Urine Color YELLOW (YELLW/STRAW) Urine Turbidity HAZY (CLEAR) Urine pH 5.5 (5.0-8.5) Urine Specific [place] 1.033 (1.002-1.035) Urine Protein 30 mg/dL (NEG-TRACE) Urine Glucose (UA) NEG mg/dL (NEG) Urine Ketones NEG mg/dL (NEG) Urine Occult Blood NEG (NEG) Urine Nitrite NEG (NEG) Urine Bilirubin NEG (NEG) Urine Urobilinogen LESS THAN 2.0 MG/DL (LESS THAN 2.0) Urine Leukocyte Esterase LARGE (NEG) Urine RBC 41 /hpf (0-3) Urine WBC /hpf (0-5) Urine Squamous Epithelial 9 /hpf (0-5) Cells Urine Renal Epithelial Cells 5 /hpf (NONE) Urine Calcium Oxalate Crystals MOD /hpf (NONE) Urine Bacteria OCC /hpf (NONE) Urine Mucus MOD /lpf (OCC) Microscopic Urinalysis Comment CULTURE INDICATED Sodium Level 136 MEQ/L (136-145) Potassium Level 4.3 MEQ/L (3.5-5.1) Chloride Level 103 MEQ/L (98-107) Carbon Dioxide Level 25.3 MEQ/L (21.0-32.0) Anion Gap 8 MEQ/L (5-15) Blood Urea Nitrogen 5 MG/DL (7-18) Creatinine 0.62 MG/DL (0.50-1.00) Estimat Glomerular Filtration 138 ML/MIN Rate (>89) Random Glucose 74 MG/DL (74-106) Calcium Level 9.6 MG/DL (8.5-10.1) Total Bilirubin 0.4 MG/DL (0.2-1.0) Aspartate Amino Transf 46 U/L (15-37) (AST/SGOT) Alanine Aminotransferase 20 U/L (10-53) (ALT/SGPT) Alkaline Phosphatase 56 U/L (45-117) Total Protein 9.1 GM/DL (6.4-8.2) Albumin 3.3 GM/DL (3.4-5.0) Human Chorionic Gonadotropin, [id number] MIU/ML Quant (0-5) Vital Signs Date Time Temp Pulse Resp B/P Pulse Ox O2 Delivery O2 Flow Rate FiO2 06/01/17 03:22 16 06/01/17 03:12 97.5 79 107/69 100 Patient reevaluated, all labs and all studies reviewed her in detail. Patient feeling much better at this time. Patient with resolution of nausea and abdominal cramping.. Patient will follow-up with her [employer] and will return to the emergency room as needed. Patient will follow-up with all cultures from today. Diagnosis Primary Impression: Nausea and vomiting in Additional Impressions: Neck stiffness UTI (urinary tract infection) Qualified Code: N30.01 - Acute cystitis with hematuria Patient Instructions: General Instructions Additional Instructions: Please follow-up with all cultures from today Return to the emergency room as needed Please follow-up with your [employer] as soon as possible Please drink plenty of fluids Med/Other Pt SpecificInfo: Prescription(s) given Scripts Nitrofurantoin Monohydrate Macrocrystals (Macrobid)100 Mg [id number] Mg PO BID 10 Days Ref 0 Prov:Ann Cid DO 06/01/17 Promethazine (Phenergan)25 Mg [id number] Mg PO Q6H PRN (NAUSEA OR VOMITING) #30 TAB Ref 0 Prov:Ann Cid DO 06/01/17 Disposition: 01 DISCHARGE HOME Condition: Stable Ann Cid DO Jun 01, 2017 04:53
[2017-06-01] MEDS ORDERED: PROMETHAZINE HCL 25 MG TAB PO ONE (05:00)
[2017-06-01 05:05] LABS: BACTERIA, URINE OCC /hpf; BLOOD, URINE NEG (NEG); CALCIUM OXALATE CRYSTALS,URINE MOD /hpf; GLUCOSE,URINE NEG (NEG); KETONE, URINE NEG (NEG); MUCUS URINE MOD /lpf (OCC); NITRITE,URINE NEG (NEG); PH, URINE 5.5 (5.0-8.5); RENAL EPITHELIAL CELLS 5 /hpf; SQUAMOUS EPITHELIAL CELL URINE 9 /hpf (0-5); URINE COLOR YELLOW (YELLW/STRAW)
[2017-06-01 05:06] LABS: COMMENT (UR) CULTURE INDICATED; CULTURE IF INDICATED CULTURE INDICATED
[2017-06-01 05:16] LABS: ALT (GPT) 20 U/L (10-53); ANION GAP 8 MEQ/L (5-15); AST (GOT) 46 U/L (15-37); BICARBONATE 25.3 MEQ/L (21.0-32.0); BLOOD UREA NITROGEN 5 MG/DL (7-18); CHLORIDE 103 MEQ/L (98-107); GLOMERULAR FILTRATION RATE 138 ML/MIN (>89); POTASSIUM 4.3 MEQ/L (3.5-5.1); SODIUM (NA) 136 MEQ/L (136-145)
[2017-06-01 05:27] LABS: ALKALINE PHOSPHATASE 56 U/L (45-117); BETA HCG QUANT 185662 MIU/ML (0-5); TOTAL BILIRUBIN ADULT 0.4 MG/DL (0.2-1.0)
[2017-06-01] MEDS ORDERED: MACR100C2 PO (05:50)
[2017-06-01] MEDS ORDERED: cefTRIAXone INJ 1,000 MG in SODIUM CHLORIDE 0.9% INJ 100 ML IV ONE (06:00)
== END 2017-06-01 06:45 | disposition home or self-care (01) ==
LOC: NEPE 03:08
DX: O23.41 Unspecified infection of urinary tract in pregnancy, first trimester (principal); M43.6 Torticollis; B96.89 Other specified bacterial agents as the cause of diseases classified elsewhere; Z3A.13 13 weeks gestation of pregnancy
CPT/HCPCS: 80053; 81001; 84702; 84703; 85025; 87086; 96361; 96374; 99284; J0696; J7030; Q0169

== ENCOUNTER 2017-07-21 06:23 | Emergency (ER) | payer BC ==
[~2017-07-21 06:23] MED LIST changes: -HYDR-3366 PO; +MACR100C2 PO; -PERC7.5T13 PO; -PERI8.6T PO; +PROM25TA10 PO; -WALKER/ADULT/FO1 MIS; -XARE10TA PO
[2017-07-21 06:25] VITALS: BP 116/70; PULSE 100; RESP 16; TEMP 98.4; O2SAT 97
--- NOTE | 2017-07-21 06:39 | PD ---
HPI Chief Complaint: Back/ Neck Pain or Injury Time Seen by Provider: 06:32 Travel History International Travel<30 days: No Contact w/Intl Traveler<30days: No Traveled to known affect area: No History of Present Illness HPI Patient is a 31-year-old female who is 20 weeks , presents to emergency room with complaints of low back pain. Patient reports that her low back has been hurting her for the past few days. Denies radiation of pain down legs. Denies any injuries or fall. Reports urinary urgency. Denies dysuria or hematuria. Patient denies any vaginal discharge or bleeding. Patient reports that the pain radiates to her lower abdomen and then back. Denies fever/ chills. Denies gait instability. Denies saddle anesthesia. PFSH Past Medical History Cancer: No Cardiovascular Problems: Yes (MURMUR) Diabetes: No Diminished Hearing: No Endocrine: No Gastrointestinal Disorders: No Genitourinary: No Hepatitis: No Hiatal Hernia: No Hypertension: No Immune Disorder: No Medical other: No Musculoskeletal: No Neurologic: No Psychiatric: No Reproductive: No Respiratory: No Thyroid Disease: No ?: LMP: 03/02/17 : 2 Para: 1 Ovarian Cysts: Yes Past Surgical History AICD: No Section: Yes (X1) Gynecologic Surgery: Yes (C SECTION) Joint Replacement: No Oral Surgery: Yes (WISDOM TEETH) Pacemaker: No Other Surgery: Yes Social History Alcohol Use: No Tobacco Use: No Substance Use: No Allergies-Medications (Allergen,Severity, Reaction): Coded Allergies: No Known Allergies (Unverified , 07/21/17) Reported Meds & Prescriptions Reported Meds & Active Scripts Active No Active Prescriptions or Reported Medications Review of Systems General / Constitutional: No: Fever Eyes: No: Visual changes HENT: No: Headaches Cardiovascular: No: Chest Pain or Discomfort Respiratory: No: Shortness of Breath Gastrointestinal: No: Nausea, Vomiting, Abdominal Pain Genitourinary: Positive: Frequency, No: Dysuria Musculoskeletal: Positive: Pain (low back pain) Skin: No Rash Neurologic: No: Weakness Psychiatric: No: Depression Endocrine: No: Polydipsia Hematologic/Lymphatic: No: Easy Bruising Physical Exam Narrative GENERAL: mild distress SKIN: Focused skin assessment warm/dry. ENT: No nasal bleeding or discharge. Mucous membranes pink and moist. NECK: Trachea midline. No JVD. CARDIOVASCULAR: Regular rate and rhythm. No murmur appreciated. RESPIRATORY: No accessory muscle use. Clear to auscultation. Breath sounds equal bilaterally. GASTROINTESTINAL: Abdomen soft, non-tender, nondistended. Hepatic and splenic margins not palpable. Patient with no saddle anesthesia MUSCULOSKELETAL: No obvious deformities. No clubbing. No cyanosis. No edema. patient with paraspinal lumbar tenderness NEUROLOGICAL: Awake and alert. Motor grossly within normal limits. Normal speech. PSYCHIATRIC: Appropriate mood and affect; insight and judgment normal. Data Data Last Documented VS Vital Signs Date Time Temp Pulse Resp B/P Pulse Ox O2 Delivery O2 Flow Rate FiO2 07/21/17 06:25 98.4 100 16 116/70 97 Room Air Orders Urinalysis - C+S If Indicated (07/21/17 06:32) Acetaminophen (Tylenol) (07/21/17 06:45) MDM Medical Decision Making Medical Screen Exam Complete: Yes Emergency Medical Condition: Yes Interpretation(s) Vital Signs Date Time Temp Pulse Resp B/P Pulse Ox O2 Delivery O2 Flow Rate FiO2 07/21/17 06:25 98.4 100 16 116/70 97 Room Air Differential Diagnosis Differential includes lumbar strain, UTI Narrative Course 31 year old female who presents to ER with c/o intermittent of low back pain radiating to her groin for the past few days. Denies fall or trauma. Denies gait instability. Denies saddle anesthesia, denies incontinence of urine or bowel. Patient reports urinary frequency, no dysuria or hematuria. Plan to obtain UA, patient will go to OB triage after she is cleared. Will give acetaminophen for pain. Diagnosis Primary Impression: Back pain complicating in second trimester Patient Instructions: General Instructions Additional Instructions: Please go directly to ob/triage after you leave this ER Return to ER as needed Please follow up with your primary care doctor as well as your support worker, Dr. Busby Scripts No Active Prescriptions or Reported Meds Condition: Stable Ann Cid DO Jul 21, 2017 06:38 Ann Cid DO Jul 21, 2017 06:38
[2017-07-21] MEDS ORDERED: ACETAMINOPHEN 325 MG TAB PO ONE (06:45)
[2017-07-21 07:05] LABS: BACTERIA, URINE RARE /hpf; BLOOD, URINE NEG (NEG); COMMENT (UR) CULTURE INDICATED; CULTURE IF INDICATED CULTURE INDICATED; GLUCOSE,URINE NEG (NEG); KETONE, URINE NEG (NEG); MUCUS URINE FEW /lpf (OCC); NITRITE,URINE NEG (NEG); RENAL EPITHELIAL CELLS <1 /hpf; SQUAMOUS EPITHELIAL CELL URINE 7 /hpf (0-5); URINE COLOR YELLOW (YELLW/STRAW)
[2017-07-21] MEDS ORDERED: MACR100C2 PO (07:10)
--- NOTE | 2017-07-21 07:10 | PD ---
Physical Exam Narrative Signed out to me by Dr. Cid. Please see her documentation for complete details. Briefly, patient is a 31-year-old female who is 20 weeks complaining of low back pain radiating into her abdomen. Exam shows no CVA tenderness. Very minimal tenderness to the suprapubic area. Patient has right ankle swelling, but she says this is chronic since a foot surgery in December. Data Data Last Documented VS Vital Signs Date Time Temp Pulse Resp B/P Pulse Ox O2 Delivery O2 Flow Rate FiO2 07/21/17 07:18 87 20 122/72 100 07/21/17 06:25 98.4 Room Air Orders Urinalysis - C+S If Indicated (07/21/17 06:32) Acetaminophen (Tylenol) (07/21/17 06:45) Urine Culture (07/21/17 06:44) Labs Laboratory Tests Test 07/21/17 06:44 Urine Color YELLOW Urine Turbidity HAZY Urine pH 6.0 Urine Specific Robert Lee 1.039 Urine Protein 30 mg/dL Urine Glucose (UA) NEG mg/dL Urine Ketones NEG mg/dL Urine Occult Blood NEG Urine Nitrite NEG Urine Bilirubin NEG Urine Urobilinogen 2.0 MG/DL Urine Leukocyte Esterase LARGE Urine RBC 10 /hpf Urine WBC 140 /hpf Urine Squamous Epithelial 7 /hpf Cells Urine Renal Epithelial Cells <1 /hpf Urine Amorphous Sediment RARE Urine Bacteria RARE /hpf Urine Mucus FEW /lpf Microscopic Urinalysis Comment CULTURE INDICATED MDM Supervised Visit with KRISHAN: No Narrative Course Urinalysis is positive for UTI. She'll be given a prescription for Macrobid. She will be taken to OB triage for further evaluation. Diagnosis Primary Impression: Back pain complicating in second trimester Additional Impression: UTI (urinary tract infection) Qualified Code: N30.00 - Acute cystitis without hematuria Patient Instructions: General Instructions Additional Instruction: Please go directly to ob/triage after you leave this ER Return to ER as needed Please follow up with your primary care doctor as well as your humidifier maintenance worker, Dr. Busby Scripts Nitrofurantoin Monohydrate Macrocrystals (Macrobid)100 Mg [id number] Mg PO BID 7 Days Ref 0 Prov:Jacquelin Gaona MD 07/21/17 Disposition: 01 DISCHARGE HOME Condition: Stable Jacquelin Gaona MD Jul 21, 2017 07:10
[2017-07-21 07:18] VITALS: BP 122/72
== END 2017-07-21 07:39 | disposition home or self-care (01) ==
LOC: NEPC 06:23
DX: M54.5 Low back pain (principal); R30.0 Dysuria; Z33.1 Pregnant state, incidental; Z3A.20 20 weeks gestation of pregnancy
CPT/HCPCS: 81001; 87086; 99283

== ENCOUNTER 2017-10-12 12:45 | Emergency (ER) | payer BC ==
[~2017-10-12] VITALS: Ht 162.6 cm; Wt 95.3 kg
[~2017-10-12 12:45] MED LIST changes: -PROM25TA10 PO
[2017-10-12] MEDS ORDERED: DEXTROSE 5%-LACTATED RING INJ 1,000 ML IV ONE (13:30)
[2017-10-12] MEDS ORDERED: ONDANSETRON HCL 4 MG/2 ML VIAL IV PUSH ONE (13:30)
--- NOTE | 2017-10-12 13:41 | PD ---
HPI Chief Complaint 32 weeks nausea/vomoting fatigue Date Seen: Oct 12, 2017 Time Seen: 13:20 Travel History International Travel<30 Days: No Contact w/Intl Traveler<30Days: No Known Affected Area: No History of Present Illness HPI Pt is a 32 yo at [address] Busby. care previously uncomplicated with exception of intermittent ongoing nausea and vomiting. Pt takes Zofran SL PRN. Pt states she was at work and was not feeling well. Has a 'cold', but had nausea and had to take Zofran twice. No vaginal bleeding or leaking. No abdominal pain. Denies fevers or chills. No headache. Active movements. Weeks Gestation: 32 Para: 1 : 2 History Past Medical History Narrative Medical has a heart murmur Obstetric History Obstetric History 1st complicated by oligohydramnios at term. had C section. Past Surgical History Narrative Surgical C Section, Foot surgery Family History Family History: Negative Social History Alcohol Use: No Tobacco Use: No Substance Abuse: No Allergies-Medications (Allergen,Severity, Reaction): Coded Allergies: No Known Allergies (Unverified Adverse Reaction, Unknown, 10/12/17) Home Meds Active Scripts Nitrofurantoin Monohydrate Macrocrystals (Macrobid) 100 Mg Capsule, 100 MG PO BID for Infection for 7 Days, CAP 0 Refills Prov:Jacquelin Gaona MD 07/21/17 Review of Systems Except as stated in HPI: all other systems reviewed are Neg Physical Exam Narrative GENERAL: Well-nourished, well-developed patient. SKIN: Warm and dry. HEAD: Normocephalic and atraumatic. EYES: No scleral icterus. No injection or drainage. ENT: No nasal drainage noted. Mucous membranes pink. Airway patent. NECK: Supple, trachea midline. No JVD. CARDIOVASCULAR: Regular rate and rhythm without murmurs, gallops, or rubs. RESPIRATORY: Breath sounds equal bilaterally. No accessory muscle use. BREASTS: Bilateral exam showed no masses , no retractions, no nipple discharge. ABDOMEN/GI: Abdomen soft, non-tender, bowel sounds present, no rebound, no guarding Gravid to [32] weeks size Fundal Height: [32] Uterine Contractions: [none] FHT's: Category: [1] Baseline: [120s] Reactive: [-] Variability: [good] Decels: [none] EXTREMITIES: No cyanosis or edema. BACK: Nontender without obvious deformity. No CVA tenderness. NEUROLOGICAL: Awake and alert. Motor and sensory grossly within normal limits. Five out of 5 muscle strength in all muscle groups. Normal speech. Data Data Vital Signs Reviewed: Yes Orders Orders Vital Signs (Adult) .ON ADMISSION (10/12/17 13:17) ^ Labor Status (10/12/17 13:17) Urinalysis - C+S If Indicated (10/12/17 13:17) Diet Liquid (10/12/17 Lunch) Cbc No Diff, Includes Plts (10/12/17:) Basic Metabolic Panel (Bmp) (10/12/17:) Ondansetron Inj (Zofran Inj) (10/12/17 13:30) Dextrose 5%-Lactated Ring Inj (D5-Lr Inj (10/12/17 13:30) MDM Medical Record Reviewed: Yes Plan 32 yo presents with fatigue, nausea and vomiting. UA sent. Will start D5 LR IV bolus, IV Zofran. CBC wnl, UA suggestive of UTI Pt completed IV bolus, and reports feeling better. Advised modified bed rest. Return to work 10/14/2017. Diagnosis Diagnosis: Primary Impression: 32 weeks gestation of Additional Impressions: Fatigue during in third trimester Nausea and vomiting in Disposition: 01 DISCHARGE HOME Condition: Stable Scripts Nitrofurantoin Monohydrate Macrocrystals (Macrobid) 100 Mg Cap 100 MG PO BID for Infection for 5 Days, #10 CAP 0 Refills Prov: Anselmo Preciado MD 10/12/17 Departure Forms: Work Release Anselmo Preciado MD Oct 12, 2017 13:41
[2017-10-12 14:37] LABS: HEMATOCRIT 30.6 % (35.0-46.0); MEAN CELL VOLUME 91.1 FL (80.0-100.0); MEAN CORPUSCULAR HEMOGLOBIN 30.9 PG (27.0-34.0); MEAN CORPUSCULAR HGB CONC 33.9 % (32.0-36.0); PLATELET COUNT 138 TH/MM3 (150-450); RED BLOOD COUNT 3.36 MIL/MM3 (4.00-5.30); RED CELL DISTRIBUTION WIDTH 13.7 % (11.6-17.2); REVIEW FLAG FINAL; WHITE BLOOD COUNT 6.8 TH/MM3 (4.0-11.0)
[2017-10-12 14:42] LABS: BACTERIA, URINE MOD /hpf; BLOOD, URINE TRACE (NEG); GLUCOSE,URINE NEG (NEG); KETONE, URINE TRACE mg/dL (NEG); MUCUS URINE FEW /lpf (OCC); NITRITE,URINE NEG (NEG); SQUAMOUS EPITHELIAL CELL URINE 6 /hpf (0-5); TRANSITIONAL EPI CELLS, URINE 1 /hpf; URINE COLOR YELLOW (YELLW/STRAW)
[2017-10-12 14:43] LABS: COMMENT (UR) CULTURE INDICATED; CULTURE IF INDICATED CULTURE INDICATED
[2017-10-12] MEDS ORDERED: MACR100C2 PO (14:51)
[2017-10-12 14:56] LABS: BICARBONATE 24.1 MEQ/L (21.0-32.0); POTASSIUM 3.3 MEQ/L (3.5-5.1)
[2017-10-12 15:00] VITALS: RESP 18
== END 2017-10-12 15:08 | disposition home or self-care (01) ==
LOC: HOBED 12:45
DX: O21.9 Vomiting of pregnancy, unspecified (principal); O26.813 Pregnancy related exhaustion and fatigue, third trimester; R01.1 Cardiac murmur, unspecified; B96.89 Other specified bacterial agents as the cause of diseases classified elsewhere; Z3A.32 32 weeks gestation of pregnancy
CPT/HCPCS: 59025; 80048; 81001; 85027; 87086; 96374; 99284; J2405; J7121

== ENCOUNTER 2017-10-29 23:50 | Emergency (ER) | payer BC ==
[2017-10-30 00:27] LABS: BACTERIA, URINE RARE /hpf; BLOOD, URINE NEG (NEG); COMMENT (UR) CULTURE INDICATED; CULTURE IF INDICATED CULTURE INDICATED; GLUCOSE,URINE NEG (NEG); KETONE, URINE NEG (NEG); MUCUS URINE FEW /lpf (OCC); NITRITE,URINE NEG (NEG); SQUAMOUS EPITHELIAL CELL URINE 8 /hpf (0-5); TRANSITIONAL EPI CELLS, URINE <1 /hpf; URINE COLOR YELLOW (YELLW/STRAW)
[2017-10-30] MEDS ORDERED: NITROFURANTOIN MONOHYD MACROCR 100 MG CAP PO STA (00:37)
[2017-10-30] MEDS ORDERED: MACR100C2 PO (00:42)
--- NOTE | 2017-10-30 00:42 | PD ---
HPI Chief Complaint Difficulties and completely empty her bladder, vaginal discharge Date Seen: Oct 30, 2017 Time Seen: 00:38 Travel History International Travel<30 Days: No Contact w/Intl Traveler<30Days: No Known Affected Area: No History of Present Illness HPI 32-year-old who is at 34 weeks and 4 days complains of urinary frequency associated with a feeling that her bladder does not completely empty for the past 3 days. She states that this seems to be getting worse but denies flank pain or fever. Patient has had 2 prior urinary tract infections this . She denies abdominal pain contractions or vaginal bleeding. Weeks Gestation: 34 Para: 1 : 2 History Past Medical History Narrative Medical Benign heart murmur Obstetric History Obstetric History section Family History Family History: Negative Social History Alcohol Use: No Tobacco Use: No Substance Abuse: No Allergies-Medications (Allergen,Severity, Reaction): Coded Allergies: No Known Allergies (Unverified Adverse Reaction, Unknown, 10/12/17) Home Meds Active Scripts Nitrofurantoin Monohydrate Macrocrystals (Macrobid) 100 Mg Cap, 100 MG PO BID for Infection for 5 Days, #10 CAP 0 Refills Prov:Anselmo Preciado MD 10/12/17 Nitrofurantoin Monohydrate Macrocrystals (Macrobid) 100 Mg Capsule, 100 MG PO BID for Infection for 7 Days, CAP 0 Refills Prov:Jacquelin Gaona MD 07/21/17 Review of Systems Except as stated in HPI: all other systems reviewed are Neg Physical Exam Narrative GENERAL: Well-nourished, well-developed patient. SKIN: Warm and dry. HEAD: Normocephalic and atraumatic. EYES: No scleral icterus. No injection or drainage. ENT: No nasal drainage noted. Mucous membranes pink. Airway patent. NECK: Supple, trachea midline. No JVD. CARDIOVASCULAR: Regular rate and rhythm without murmurs, gallops, or rubs. RESPIRATORY: Breath sounds equal bilaterally. No accessory muscle use. ABDOMEN/GI: Abdomen soft, non-tender, bowel sounds present, no rebound, no guarding Gravid to [-34] weeks size Fundal Height: [-] GENITOURINARY: External Genitalia: intact and normal in appearance BUS glands: [-Normal] Cervix: [Posterior-] Dilatation: [Closed-] Effacement: [-50] Station: [-High] Presentation: [Vertex-] Membranes: [intact Uterine Contractions: [-Absent] FHT's: Category: [-1] Baseline: [-140] Reactive: [-Moderate] Variability: [-Moderate] Decels: [-Absent] EXTREMITIES: No cyanosis or edema. BACK: Nontender without obvious deformity. No CVA tenderness. NEUROLOGICAL: Awake and alert. Motor and sensory grossly within normal limits. Five out of 5 muscle strength in all muscle groups. Normal speech. Data Data Orders Orders Urinalysis - C+S If Indicated (10/30/17 00:03) Urine Culture (10/30/17 00:01) Nitrofurantoin Monohyd Macrocr (Macrobid (10/30/17 00:37) Labs Laboratory Tests Test 10/30/17 00:01 Urine Color YELLOW Urine Turbidity HAZY Urine pH 6.0 Urine Specific Kingsley 1.035 Urine Protein 30 Urine Glucose (UA) NEG Urine Ketones NEG Urine Occult Blood NEG Urine Nitrite NEG Urine Bilirubin NEG Urine Urobilinogen 2.0 Urine Leukocyte Esterase LARGE Urine RBC 14 Urine WBC Urine Squamous Epithelial Cells 8 Urine Transitional Epithelial Cells <1 Urine Bacteria RARE Urine Mucus FEW Microscopic Urinalysis Comment CULTURE INDICATED Date/Time Source Procedure Growth Status 10/30/17 00:01 Urine Clean Catch Urine Culture Pending Received MDM Medical Record Reviewed: Yes Plan 32-year-old who is at 34 weeks 4 days with symptoms and signs of a urinary tract infection. Patient will be given a prescription for Macrobid with the first dose given while she is here. Patient has a follow-up visit to Dr. Busby on Saturday Diagnosis Diagnosis: Primary Impression: 34 weeks gestation of Additional Impressions: Urinary tract infection affecting care of mother in third trimester, antepartum Previous section complicating , antepartum condition or complication Disposition: DISCHARGE HOME Condition: Stable Scripts Nitrofurantoin Monohydrate Macrocrystals (Macrobid) 100 Mg Capsule 100 MG PO BID for Infection, #20 CAP 0 Refills Prov: Tara Vicente MD 10/30/17 Patient Instructions: General Instructions Additional Instructions: DRINK PLENTY OF WATER, TAKE ALL YOUR PRESCRIBED MEDICATIONS, RETURN FOR LEAKING FLUID, VAGINAL BLEEDING, STRONG CONTRACTIONS OR DECREASE IN BABY MOVING. FOLLOW UP WITH YOUR OB DR IN AM AND KEEP ALL UPCOMING OB APPTS. Departure Forms: Tests/Procedures Tara Vicente MD Oct 30, 2017 00:42
== END 2017-10-30 00:50 | disposition home or self-care (01) ==
LOC: HOBED 23:50
DX: O23.43 Unspecified infection of urinary tract in pregnancy, third trimester (principal); B96.89 Other specified bacterial agents as the cause of diseases classified elsewhere; Z3A.34 34 weeks gestation of pregnancy
CPT/HCPCS: 81001; 87086; 99284

== ENCOUNTER 2017-11-15 06:27 | Emergency (ER) | payer BC ==
--- NOTE | 2017-11-15 07:09 | PD ---
HPI Chief Complaint Complains of contractions Date Seen: Nov 15, 2017 Time Seen: 07:03 Travel History International Travel<30 Days: No Contact w/Intl Traveler<30Days: No Known Affected Area: No History of Present Illness HPI Patient is 32-year-old black female at 36-37 weeks presents for contraction pain. Denies bleeding or leakage of fluid, heart rate tracing is reactive with good variability and she's had a couple of contractions that she's been here but nothing regular. Patient sees Dr. Busby for care Weeks Gestation: 36 Para: 1 : 2 History Obstetric History Obstetric History One vaginal delivery Social History Alcohol Use: No Tobacco Use: No Substance Abuse: No Allergies-Medications (Allergen,Severity, Reaction): Coded Allergies: No Known Allergies (Unverified Adverse Reaction, Unknown, 10/12/17) Home Meds Active Scripts Nitrofurantoin Monohydrate Macrocrystals (Macrobid) 100 Mg Capsule, 100 MG PO BID for Infection, #20 CAP 0 Refills Prov:Tara Vicente MD 10/30/17 Nitrofurantoin Monohydrate Macrocrystals (Macrobid) 100 Mg Cap, 100 MG PO BID for Infection for 5 Days, #10 CAP 0 Refills Prov:Anselmo Preciado MD 10/12/17 Nitrofurantoin Monohydrate Macrocrystals (Macrobid) 100 Mg Capsule, 100 MG PO BID for Infection for 7 Days, CAP 0 Refills Prov:Jacquelin Gaona MD 07/21/17 Review of Systems General / Constitutional: No: Fever, Weight Gain, Chills, Other Eyes: No: Diploplia, Blurred Vision, Visual changes, Pain, Photophobia HENT: No: Headaches, Vertigo, Lightheadedness Cardiovascular: No: Irregular Rhythm, Chest Pain or Discomfort, Palpitations, Tachycardia, Syncope, Varicosities, Edema, Cyanosis Respiratory: No: Cough, Short of Breath, Other Gastrointestinal: Abdominal Pain, No: Nausea, Vomiting, Diarrhea Genitourinary: No: Decreased Urinary Output, Oliguria Musculoskeletal: No: Limited ROM, Weakness, Cramping, Edema, Pain Skin: No Rash, No Itching, No Dryness, No Lumps, No Change in Pigmentation, No Change in Nails, No Alopecia, No Lesions Neurologic: No: Weakness, Dizziness, Syncope, Focal Abnormalities, Coordination Problem, Headache, Slurred Speech, Seizures Psychiatric: No: Depression, Suicidal Ideations, Homicidal Ideation Endocrine: No: Heat Intolerance, Cold Intolerance, Polydipsia, Polyuria, Other Physical Exam Narrative GENERAL: Well-nourished, well-developed patient. SKIN: Warm and dry. HEAD: Normocephalic and atraumatic. EYES: No scleral icterus. No injection or drainage. ENT: No nasal drainage noted. Mucous membranes pink. Airway patent. NECK: Supple, trachea midline. No JVD. CARDIOVASCULAR: Regular rate and rhythm without murmurs, gallops, or rubs. RESPIRATORY: Breath sounds equal bilaterally. No accessory muscle use. BREASTS: Bilateral exam showed no masses , no retractions, no nipple discharge. ABDOMEN/GI: Abdomen soft, non-tender, bowel sounds present, no rebound, no guarding Gravid to [-37] weeks size Fundal Height: [37-] GENITOURINARY: External Genitalia: intact and normal in appearance BUS glands: [-] Cervix: [post-] Dilatation: [1-] Effacement: [50-] Station: [-3] Presentation: [-vtx] Membranes: [intact ] Uterine Contractions: [Irregular-] FHT's: Category: [1-] Baseline: [133-] Reactive: [-yes] Variability: [mod-] Decels: [0-] EXTREMITIES: No cyanosis or edema. BACK: Nontender without obvious deformity. No CVA tenderness. NEUROLOGICAL: Awake and alert. Motor and sensory grossly within normal limits. Five out of 5 muscle strength in all muscle groups. Normal speech. MDM Interpretation(s) Patient is 32-year-old black female at 36-37 weeks presents complaining of contractions denies other complaints or problems such as bleeding or leakage of fluid. heart rate tracing is reactive, and she is having contractions but nothing regular. Cervix is 1 cm 50% -3. Plan Plan to discharge patient home to observation home she can use Tylenol liberally by mouth, oral hydration, bedrest and or hot bath or heating pad as well. Patient was offered a pain shot while here but did not want that. She is to follow-up with her OB provider Diagnosis Diagnosis: Primary Impression: Abdominal pain affecting Additional Impression: Blair Saldivar contractions Disposition: DISCHARGE HOME Condition: Stable Demetris Moraes II, MD Nov 15, 2017 07:09
== END 2017-11-15 07:53 | disposition home or self-care (01) ==
LOC: HOBED 06:27
DX: O26.893 Other specified pregnancy related conditions, third trimester (principal); R10.9 Unspecified abdominal pain; O47.03 False labor before 37 completed weeks of gestation, third trimester; Z3A.36 36 weeks gestation of pregnancy; Z79.899 Other long term (current) drug therapy
CPT/HCPCS: 99283

== ENCOUNTER 2017-11-25 20:03 | Emergency (ER) | payer BC ==
--- NOTE | 2017-11-25 20:40 | PD ---
HPI Chief Complaint Contractions Date Seen: Nov 25, 2017 Time Seen: 20:36 Travel History International Travel<30 Days: No Contact w/Intl Traveler<30Days: No Known Affected Area: No History of Present Illness HPI 32-year-old who is at 36 weeks and 6 days complains of contractions for the past day and a half occurring every 15-20 minutes. Patient states that she thinks she may have passed a mucous plug but denies vaginal bleeding or rupture membranes. Patient's had good movement. Last examination occurred 2 weeks ago here in the OB ED when she was a centimeter. She has appointment to see Dr. Ring in the office on Weeks Gestation: 36 (36.6) Para: 1 : 2 History Past Medical History Narrative Medical Benign heart murmur Obstetric History Obstetric History for failure to progress Past Surgical History Narrative Surgical Foot surgery Family History Family History: Negative Social History Alcohol Use: No Tobacco Use: No Substance Abuse: No Allergies-Medications (Allergen,Severity, Reaction): Coded Allergies: No Known Allergies (Unverified Adverse Reaction, Unknown, 10/12/17) Home Meds Active Scripts Nitrofurantoin Monohydrate Macrocrystals (Macrobid) 100 Mg Capsule, 100 MG PO BID for Infection, #20 CAP 0 Refills Prov:Tara Vicente MD 10/30/17 Nitrofurantoin Monohydrate Macrocrystals (Macrobid) 100 Mg Cap, 100 MG PO BID for Infection for 5 Days, #10 CAP 0 Refills Prov:Anselmo Preciado MD 10/12/17 Nitrofurantoin Monohydrate Macrocrystals (Macrobid) 100 Mg Capsule, 100 MG PO BID for Infection for 7 Days, CAP 0 Refills Prov:Jacquelin Gaona MD 07/21/17 Review of Systems Except as stated in HPI: all other systems reviewed are Neg Physical Exam Narrative GENERAL: Well-nourished, well-developed patient. SKIN: Warm and dry. HEAD: Normocephalic and atraumatic. EYES: No scleral icterus. No injection or drainage. ENT: No nasal drainage noted. Mucous membranes pink. Airway patent. NECK: Supple, trachea midline. No JVD. CARDIOVASCULAR: Regular rate and rhythm without murmurs, gallops, or rubs. RESPIRATORY: Breath sounds equal bilaterally. No accessory muscle use. ABDOMEN/GI: Abdomen soft, non-tender, bowel sounds present, no rebound, no guarding Gravid to [-37] weeks size Fundal Height: [-] GENITOURINARY: External Genitalia: intact and normal in appearance BUS glands: [Normal-] Cervix: [Posterior] Dilatation: [-1] Effacement: [-] Long Station: [-] High Presentation: [-] Vertex Membranes: [intact or ruptured] intact Uterine Contractions: [-] Rare contractions FHT's: Category: [-] 1 Baseline: [-] 140 Reactive: [-] Moderate Variability: [-] Moderate Decels: [-] Absent EXTREMITIES: No cyanosis or edema. BACK: Nontender without obvious deformity. No CVA tenderness. NEUROLOGICAL: Awake and alert. Motor and sensory grossly within normal limits. Five out of 5 muscle strength in all muscle groups. Normal speech. Data Data Vital Signs Reviewed: Yes [facility] Medical Record Reviewed: Yes Plan 32-year-old who is at 36 weeks and 6 days with occasional uterine contractions and no cervical change from 2 weeks ago Patient was reassured and precautions are given for labor Previous section Follow-up Dr. Busby and the office on as scheduled Diagnosis Diagnosis: Primary Impression: False labor at or after 37 completed weeks of gestation, antepartum Additional Impressions: 36 weeks gestation of Previous section complicating , antepartum condition or complication Disposition: 01 DISCHARGE HOME Tara Vicente MD Nov 25, 2017 20:40
[2017-11-25] MEDS ORDERED: ZOFR4TAB PO (20:47)
[2017-11-25] MEDS ORDERED: PREN29TA PO (20:47)
[2017-11-25] MEDS ORDERED: hydrOXYzine HCL 50 MG/ML VIAL IM STA (20:50)
== END 2017-11-25 21:30 | disposition home or self-care (01) ==
LOC: HOBED 20:03
DX: O47.03 False labor before 37 completed weeks of gestation, third trimester (principal); O34.219 Maternal care for unspecified type scar from previous cesarean delivery; Z3A.36 36 weeks gestation of pregnancy
CPT/HCPCS: 96372; 99284; J3410

== ENCOUNTER 2017-12-01 06:37 | Emergency (ER) | payer BC ==
[~2017-12-01] VITALS: Ht 162.6 cm; Wt 97.7 kg
[~2017-12-01 06:37] MED LIST changes: -MACR100C2 PO; +PREN29TA PO; +ZOFR4TAB PO
[2017-12-01 06:39] VITALS: BP 120/65; PULSE 83; RESP 16; TEMP 98.9; O2SAT 99
--- NOTE | 2017-12-01 07:16 | PD ---
HPI Chief Complaint: Cold / Flu Symptoms Time Seen by Provider: 07:07 Travel History International Travel<30 days: No Contact w/Intl Traveler<30days: No Traveled to known affect area: No History of Present Illness HPI 32 y/o female presents with nonproductive cough for the past week. She is 38 weeks . She states her OB is Dr. Busby. She denies fever, difficulty breathing, nasal congestion, vaginal bleeding, contractions or pain or other concurrent complaints. She states she's tried hunting and that doesn' t help and it makes it hard for her to sleep when she coughs. She still having good movement. PFSH Past Medical History Cancer: No Cardiovascular Problems: Yes (MURMUR) Diabetes: No Diminished Hearing: No Endocrine: No Gastrointestinal Disorders: No Genitourinary: No Hepatitis: No Hiatal Hernia: No Hypertension: No Immune Disorder: No Musculoskeletal: No Neurologic: No Psychiatric: No Reproductive: No Respiratory: No Thyroid Disease: No ?: : 2 Para: 1 Ovarian Cysts: Yes Past Surgical History AICD: No Section: Yes (X1) Gynecologic Surgery: Yes (C SECTION) Joint Replacement: No Oral Surgery: Yes (WISDOM TEETH) Pacemaker: No Other Surgery: Yes Social History Alcohol Use: No Tobacco Use: No Substance Use: No Allergies-Medications (Allergen,Severity, Reaction): Coded Allergies: No Known Allergies (Verified Adverse Reaction, Unknown, 12/01/17) Reported Meds & Prescriptions Reported Meds & Active Scripts Active Reported Plus Iron 29-1 mg ( Vit-Iron Carbonyl) 29 Mg Iron-1 Mg Tab 1 Tab PO DAILY Zofran (Ondansetron HCl) 4 Mg Tab 4 Mg PO Q6HR PRN Review of Systems Except as stated in HPI: all other systems reviewed are Neg Physical Exam Narrative GENERAL: Well-nourished, well-developed patient. SKIN: Warm and dry. HEAD: Normocephalic and atraumatic. EYES: No injection or drainage. ENT: No nasal drainage noted. No rhinorrhea NECK: Supple, trachea midline. CARDIOVASCULAR: Regular rate and rhythm RESPIRATORY: Breath sounds equal bilaterally. No accessory muscle use. GASTROINTESTINAL: Abdomen soft, non-tender, gravid uterus EXTREMITIES: No edema. NEUROLOGICAL: Awake and alert. Motor and sensory grossly within normal limits. Normal speech. Data Data Last Documented VS Vital Signs Date Time Temp Pulse Resp B/P (MAP) Pulse Ox O2 Delivery O2 Flow Rate FiO2 12/01/17 06:39 98.9 83 16 120/65 (83) 99 Room Air Orders Orders Ed Discharge Order (12/01/17 07:15) MDM Medical Decision Making Medical Screen Exam Complete: Yes Emergency Medical Condition: Yes Medical Record Reviewed: Yes (past history confirmed) Differential Diagnosis URI, allergies, pharyngitis Narrative Course Patient with normal vitals and well-appearing on exam. Given advanced gestation Will discuss with OB all questions answered. Patient knows that follow up is incumbent on them and to return to the emergency room immediately if new or worsening symptoms develop. Patient given strict return precautions, vitals reviewed and are normal , agrees to further workup as an outpatient. Physician Communication Physician Communication ob hospitalist states ok to go without further testing here Diagnosis Primary Impression: Cough Additional Impression: Qualified Codes: Z3A.38 - 38 weeks gestation of Patient Instructions: General Instructions Additional Instructions: return as needed, call your ob for follow up saturday, continue supportive care Med/Other Pt SpecificInfo: No Change to Meds Disposition: 01 DISCHARGE HOME Condition: Stable [facility] MD Dec 01, 2017 07:16
== END 2017-12-01 07:37 | disposition home or self-care (01) ==
LOC: NEPC 06:37
DX: O99.513 Diseases of the respiratory system complicating pregnancy, third trimester (principal); R05 Cough; R01.1 Cardiac murmur, unspecified; Z3A.38 38 weeks gestation of pregnancy
CPT/HCPCS: 99282

== ENCOUNTER 2017-12-06 21:11 | Inpatient (IN) | payer BC ==
[~2017-12-06] VITALS: Ht 162.6 cm; Wt 96.2 kg
[2017-12-06] VITALS (16 sets, daily range): BP systolic 103–129; BP diastolic 60–81; PULSE 70–97; O2SAT 100
[2017-12-06] MEDS ORDERED: LACTATED RINGER'S 1000 ML INJ 1,000 ML IV PRN (21:44)
--- NOTE | 2017-12-06 21:44 | HHI.HP ---
History & Physical H&P HPI HPI Chief Complaint Contractions Date Seen: Dec 06, 2017 Time Seen: 21:36 Travel History International Travel<30 Days: No Contact w/Intl Traveler<30Days: No Known Affected Area: No History of Present Illness HPI 32-year-old 2 para 1 at 38+ weeks gestation who reports having increasing contractions since 5 PM. She also thinks she may be leaking some fluid. She states that she was 3 cm dilated in the office yesterday with Dr. Busby. She denies bleeding. She reports good movement. History (Limited) History Past Medical History Medical History: Denies Significant Hx Obstetric History Obstetric History 1 prior at term for oligohydramnios This has been uncomplicated. She desires Past Surgical History Narrative Surgical , foot surgery Family History Family History: Negative Social History Alcohol Use: No Tobacco Use: No Substance Abuse: No Allergies-Medications Allergies-Medications (Allergen,Severity, Reaction): Coded Allergies: No Known Allergies (Verified Adverse Reaction, Unknown, 12/01/17) Home Meds Reported Medications Vit-Iron Carbonyl ( Plus Iron 29-1 mg) 29 Mg Iron-1 Mg Tab, 1 TAB PO DAILY for Nutritional Supplement, #30 TAB 0 Refills 11/25/17 Ondansetron (Zofran) 4 Mg Tab, 4 MG PO Q6HR Y for NAUSEA OR VOMITING, TAB 0 Refills 11/25/17 ROS Review of Systems Except as stated in HPI: all other systems reviewed are Neg Physical Exam Physical Exam Narrative GENERAL: Well-nourished, well-developed patient. SKIN: Warm and dry. HEAD: Normocephalic and atraumatic. EYES: No scleral icterus. No injection or drainage. ENT: No nasal drainage noted. Mucous membranes pink. Airway patent. NECK: Supple, trachea midline. No JVD. CARDIOVASCULAR: Regular rate and rhythm without murmurs, gallops, or rubs. RESPIRATORY: Breath sounds equal bilaterally. No accessory muscle use. ABDOMEN/GI: Abdomen soft, non-tender, bowel sounds present, no rebound, no guarding Gravid to [-] weeks size Fundal Height: [-] GENITOURINARY: External Genitalia: intact and normal in appearance BUS glands: [Normal-] Cervix: [-] Dilatation: [-4] Effacement: [-80] Station: [-2-] Presentation: [-Vertex] Membranes: [intact ] Uterine Contractions: [-Moderate every 3-5] FHT's: Category: [1-] Baseline: [-] Reactive: [-] Variability: [-] Decels: [-] EXTREMITIES: No cyanosis or edema. BACK: Nontender without obvious deformity. No CVA tenderness. NEUROLOGICAL: Awake and alert. Motor and sensory grossly within normal limits. Five out of 5 muscle strength in all muscle groups. Normal speech. Data Data MDM MDM Medical Record Reviewed: Yes Narrative Course / MDM Assessment: 38+ week intrauterine in early labor, prior section desiring Plan: Admit for labor management The patient reports that she is group B strep negative, this result is not in her record Ar Bruce MD Dec 06, 2017 21:43 Ar Bruce MD Dec 06, 2017 21:44
[2017-12-06] MEDS ORDERED: OXYTOCIN 30 UNITS-500ML PREMIX 500 ML IV ONE (21:45)
[2017-12-06] MEDS ORDERED: MINERAL OIL 10 ML VIAL TOPICAL PRN (21:45)
[2017-12-06] MEDS ORDERED: LIDOCAINE HCL 1% 50 ML VIAL INFIL PRN (21:45)
[2017-12-06] MEDS ORDERED: SODIUM CHLORID 0.9% 500 ML INJ 500 ML IV PRN (21:45)
[2017-12-06] MEDS ORDERED: CITRIC ACID-SODIUM CITRATE LIQ 30 ML UDC PO SCH (21:45)
[2017-12-06] MEDS ORDERED: LIDOCAINE HCL 1% 50 ML VIAL I-DERMAL PRN (21:45)
[2017-12-06] MEDS ORDERED: SODIUM CHLOR 0.9% 1000 ML INJ 1,000 ML IV PRN (22:04)
[2017-12-06] MEDS: LACTATED RINGER'S 1000 ML INJ 1,000 ML IV SCH ×2 (22:14→23:53)
[2017-12-06] MEDS: ONDANSETRON HCL 4 MG/2 ML VIAL IV PUSH PRN (22:18)
[2017-12-06 22:29] LABS: AUTOMATED NEUTROPHIL # 7.6 TH/MM3 (1.8-7.7); BASOPHIL % 0.5 % (0.0-2.0); EOSINOPHIL % 0.3 % (0.0-4.0); HEMATOCRIT 33.4 % (35.0-46.0); HEMOGLOBIN 11.2 GM/DL (11.6-15.3); LYMPH % 8.4 % (9.0-44.0); LYMPHOCYTE # 0.8 TH/MM3 (1.0-4.8); MEAN CELL VOLUME 87.2 FL (80.0-100.0); MEAN CORPUSCULAR HEMOGLOBIN 29.1 PG (27.0-34.0); MEAN CORPUSCULAR HGB CONC 33.4 % (32.0-36.0); MEAN PLATELET VOLUME 10.7 FL (7.0-11.0); MONO % 7.4 % (0.0-8.0); MONOCYTE # 0.7 TH/MM3 (0-0.9); NEUT % 83.4 % (16.0-70.0); PLATELET COUNT 255 TH/MM3 (150-450); RED BLOOD COUNT 3.83 MIL/MM3 (4.00-5.30); RED CELL DISTRIBUTION WIDTH 14.8 % (11.6-17.2); WHITE BLOOD COUNT 9.1 TH/MM3 (4.0-11.0)
[2017-12-06] MEDS ORDERED: ePHEDrine/NS 25 MG/5 ML SYRINGE ONE (22:48)
[2017-12-06] MEDS ORDERED: fentaNYL 2MCG-BUPIV 0.125% INJ 100 ML ONE (22:48)
[2017-12-06] MEDS ORDERED: NO SYSTEM NARCOTICS PRN (23:15)
[2017-12-06] MEDS ORDERED: DO NOT ADMINISTER ANTICOAGULANTS PRN (23:15)
[2017-12-06] MEDS: fentaNYL 2MCG-BUPIV 0.125% 100 ML EPIDURAL SCH (23:28)
[2017-12-06] MEDS ORDERED: ePHEDrine/NS 25 MG/5 ML SYRINGE IV PUSH PRN (23:30)
[2017-12-07] VITALS (43 sets, daily range): BP systolic 97–134; BP diastolic 58–90; PULSE 67–121; RESP 12–20; TEMP 97.3–98.4; O2SAT 98–100
[2017-12-07 04:14] LABS: BILIRUBIN, URINE NEG (NEG); BLOOD, URINE NEG (NEG); GLUCOSE,URINE NEG (NEG); KETONE, URINE NEG (NEG); MUCUS URINE FEW /lpf (OCC); NITRITE,URINE NEG (NEG); PH, URINE 6.5 (5.0-8.5); SQUAMOUS EPITHELIAL CELL URINE 5 /hpf (0-5); URINE COLOR YELLOW (YELLW/STRAW); URINE LEUKOCYTE ESTERASE LARGE (NEG)
[2017-12-07] MEDS: fentaNYL 2MCG-BUPIV 0.125% 100 ML EPIDURAL SCH ×2 (06:09→12:53)
[2017-12-07] MEDS: ONDANSETRON HCL 4 MG/2 ML VIAL IV PUSH PRN ×3 (06:12→18:04)
[2017-12-07] MEDS: LACTATED RINGER'S 1000 ML INJ 1,000 ML IV SCH ×5 (08:43→21:54)
--- NOTE | 2017-12-07 11:27 | PD.LABORPN ---
Subjective Subjective pt comfortable with epidural Objective Vital Signs Vital Signs Date Time Temp Pulse Resp B/P (MAP) Pulse Ox O2 Delivery O2 Flow Rate FiO2 12/07/17 10:00 101 128/90 (103) 12/07/17 09:56 18 12/07/17 09:30 86 116/74 (88) 12/07/17 09:00 88 123/81 (95) 12/07/17 08:30 98.4 12/07/17 08:30 18 12/07/17 08:30 87 118/71 (87) 12/07/17 08:00 84 106/69 (81) 12/07/17 07:30 81 109/69 (82) 12/07/17 07:00 83 115/69 (84) 12/07/17 06:30 79 118/75 (89) 12/07/17 06:01 117 103/59 (74) 12/07/17 05:50 98.0 18 12/07/17 05:30 95 112/65 (81) 12/07/17 05:01 78 110/66 (81) 12/07/17 04:30 83 112/66 (81) 12/07/17 04:00 74 107/64 (78) 12/07/17 03:31 85 97/66 (76) Objective Pelvic Exam: Cervix: [-] Dilatation: [-] 8 Effacement: [-] 90 Station: [-] -1 Presentation: [-] vtx Membranes: [intact or ruptured] AROm lt mec Uterine Contractions: [-] FHT's: Category: [-] 1 Baseline: [-] 140s Reactive: [-] yes Variability: [-] Decels: [-] Weeks Gestation: 38 Gest Age Assessed Date: Dec 06, 2017 Gest Age Assessed Time: 21:00 Pt started active labor?: Yes Medical induction of labor?: No Artificial rupture of membrane: Yes Artificial ROM date: Dec 07, 2017 Artifical ROM time: 10:45 Assessment/Plan Problem List: (1) Encounter for trial of labor ICD Codes: O33.9 - Maternal care for disproportion, unspecified Plan: will recheck pt in about 1-2 hours consider low dose pitocin if needed Jb Busby MD Dec 07, 2017 11:27
[2017-12-07] MEDS ORDERED: LACTATED RINGER'S 1000 ML INJ 1,000 ML IV ONE (12:00)
[2017-12-07] MEDS ORDERED: PHENYLEPH/NS 1000 MCG/10 ML SYR IV ONE (12:00)
[2017-12-07] MEDS ORDERED: OXYTOCIN 30 UNITS-500ML PREMIX 500 ML IV SCH (12:00)
[2017-12-07] MEDS ORDERED: ONDANSETRON HCL 4 MG/2 ML VIAL IV ONE (12:00)
[2017-12-07] MEDS ORDERED: OXYTOCIN 10 UNIT/ML AMP IV ONE (12:00)
[2017-12-07] MEDS ORDERED: LIDOCAINE 2%/EPINEPHrine PF 1:200,000 20ML SDV OTHER ONE (12:00)
[2017-12-07] MEDS ORDERED: DEXAMETHASONE SOD PHOS 4 MG/ML VIAL IV ONE (12:00)
[2017-12-07] MEDS ORDERED: SODIUM CHLORIDE 0.9% 20 ML VIAL IV ONE (12:00)
[2017-12-07] MEDS ORDERED: LIDOCAINE HCL 1% PF 5 ML SYRINGE OTHER ONE (12:00)
[2017-12-07] MEDS ORDERED: ceFAZolin INJ 1,000 MG VIAL IV ONE (12:00)
[2017-12-07] MEDS ORDERED: PROPOFOL 200 MG/20 ML AMP IV ONE (12:00)
[2017-12-07] MEDS ORDERED: ceFAZolin 2 GM PREMIX 50 ML IV SCH (14:30)
[2017-12-07] MEDS ORDERED: CITRIC ACID-SODIUM CITRATE LIQ 30 ML UDC PO SCH (14:30)
[2017-12-07] MEDS ORDERED: MORPHINE SULFATE PF 5 MG/10 ML VIAL ONE (14:32)
[2017-12-07] MEDS ORDERED: ACETAMINOPHEN 1000 MG/100 ML 100 ML IV ONE (15:56)
[2017-12-07] MEDS ORDERED: KETOROLAC TROMETHAMINE 30 MG/ML (IVP) VIAL ONE (16:14)
[2017-12-07] MEDS: KETOROLAC TROMETHAMINE 30 MG/ML (IVP) VIAL IV PUSH PRN ×2 (16:52→21:53)
[2017-12-07] MEDS ORDERED: OXYTOCIN 30 UNITS-500ML PREMIX IV ONE (17:00)
[2017-12-07] MEDS ORDERED: OXYTOCIN 30 UNITS-500ML PREMIX IV PRN (17:00)
[2017-12-07] MEDS ORDERED: SODIUM CHLORIDE 0.9% FLUSH 10 ML FLUSH IV FLUSH PRN ×2 (17:00)
[2017-12-07] MEDS ORDERED: oxyCODONE/ACETAMINOPHEN 5 MG/325 MG TAB PO PRN (17:00)
[2017-12-07] MEDS ORDERED: [UNRECOGNIZED DRUG - REMARK] ONE (17:00)
[2017-12-07] MEDS ORDERED: EPIDURAL-NO SYSTEMIC NARCOTICS PRN (17:15)
[2017-12-07] MEDS ORDERED: EPIDURAL-DIPHENHYDRAMINE HCL 50 MG/ML VIAL IV PUSH PRN (17:15)
[2017-12-07] MEDS ORDERED: EPIDURAL-DIPHENHYDRAMINE HCL 50 MG CAP PO PRN (17:15)
[2017-12-07] MEDS ORDERED: EPIDURAL-NALOXONE HCL 0.4 MG/ML AMP IV PUSH PRN (17:15)
[2017-12-07] MEDS ORDERED: EPIDURAL-DO NOT ADMINISTER ANTICOAGULANTS PRN (17:15)
[2017-12-07] MEDS: ACETAMINOPHEN 1000 MG/100 ML 100 ML IV SCH ×2 (18:05→21:54)
[2017-12-08 00:40] VITALS: BP 120/70; PULSE 80; RESP 16; TEMP 98; O2SAT 98
[2017-12-08] MEDS: ACETAMINOPHEN 1000 MG/100 ML 100 ML IV SCH (03:37)
[2017-12-08] MEDS: KETOROLAC TROMETHAMINE 30 MG/ML (IVP) VIAL IV PUSH PRN ×2 (03:37→09:17)
[2017-12-08 04:00] VITALS: BP 121/71; PULSE 89; RESP 18; TEMP 97.9; O2SAT 98
[2017-12-08 08:00] VITALS: BP 110/69; PULSE 81; RESP 20; TEMP 96.6; O2SAT 0
[2017-12-08 08:54] LABS: BASOPHIL % 0.1 % (0.0-2.0); EOSINOPHIL % 0.1 % (0.0-4.0); HEMOGLOBIN 9.3 GM/DL (11.6-15.3); LYMPH % 5.6 % (9.0-44.0); LYMPHOCYTE # 0.8 TH/MM3 (1.0-4.8); MEAN CELL VOLUME 86.4 FL (80.0-100.0); MEAN CORPUSCULAR HEMOGLOBIN 28.7 PG (27.0-34.0); MEAN CORPUSCULAR HGB CONC 33.2 % (32.0-36.0); MONOCYTE # 0.8 TH/MM3 (0-0.9); NEUT % 88.2 % (16.0-70.0); PLATELET COUNT 149 TH/MM3 (150-450); RED BLOOD COUNT 3.24 MIL/MM3 (4.00-5.30); RED CELL DISTRIBUTION WIDTH 14.7 % (11.6-17.2); WHITE BLOOD COUNT 13.6 TH/MM3 (4.0-11.0)
[2017-12-08] MEDS ORDERED: INFLUENZA VIRUS VACCINE (QUADRIVALENT) 0.5 ML SYR IM ONE (09:00)
[2017-12-08] MEDS: oxyCODONE/ACETAMINOPHEN 5 MG/325 MG TAB PO PRN ×4 (09:17→21:05)
--- NOTE | 2017-12-08 11:18 | PD.OB.DELI ---
Procedure Note Section Procedure Pre Op Diagnosis: (1) Failed trial of labor following previous , antepartum (2) Encounter for trial of labor Post Op Diagnosis: (1) delivery, delivered, current hospitalization (2) Failed trial of labor following previous , antepartum Performed by Jb Busby MD Procedure: Repeat Low Transverse Sec Indication for delivery: Other (failure to progress past 8 cm) Informed consent obtained: For anesthesia, For procedure Confirmed correct: Patient, Procedure, Site, Time-out taken Anesthesia: Epidural Medication prior to procedure: As documented in eMAR Urinary catheter: Inserted using sterile technique, To dependent drainage Sterile preparation: Duraprep Position: Supine with wedge to left side Operative Features Skin Incision: Pfannenstiel Uterine Incision: Low transverse w/knife / blunt ext Membranes Ruptured: Previously Delivery date: Dec 07, 2017 Delivery time: 15:02 Delivery of infant: Uneventful Infant: Female, Single One Minute : 8 Five Minute : 9 Weight: 7-1 Status of : Viable, Nursery present Placenta delivered: Intact Estimated blood loss: 600 ml Procedure tolerated: Well Maternal Condition: Stable Condition: Stable Procedure in detail After informed consent was obtained, she consented. Her previous incision is incised in the usual fashion. The underlying layer of fascia is reached using the Bovie. The fascia is incised in the midline and the incision is extended laterally. Tennille clamps were used to elevate the fascia superiorly and inferiorly and the rectus muscles are dissected off. The peritoneum was identified and entered sharply. The bladder blade was inserted. The vesicouterine peritoneum was identified, tented open and entered sharply. The bladder blade was then reinserted. A transverse incision was made over the lower uterine segment to layer just exposing membranes; these were ruptured for clear fluid. The uterine incision was extended laterally digitally. The vertex is then delivered atraumatically through the incision followed by the remainder of the infant's body. The cord is doubly clamped and cut. The is passed off to the waiting nursery team. Once this was done, attention is then turned back to the uterine field. The placenta is removed manually intact with three-vessel cord. The uterus was exteriorized, cleared of all clot and debris. The uterine incision was repaired using 1 Chromic suture in a running locked fashion. Once this was done attention was then turned back to the uterine incision which remained hemostatic. The uterus was returned to the abdominal cavity. The gutters were cleared of all clot and debris. Seprafilm was placed over the incision. The rectus muscles were re-approximated using 0 Chromic suture in interrupted fashion. The fascia was re-approximated using 1 Vicryl suture in a running fashion. The subcutaneous fat is irrigated and made hemostatic and re- approximated using 3-0 Chromic suture. The skin is closed using 3-0 Monocryl suture. Jb Busby MD Dec 08, 2017 11:18
--- NOTE | 2017-12-08 11:20 | HHI.OB ---
Subjective Post Operative Day: 1 Remarks pain controlled, mod lochia, paulo po, +void Objective Vitals/I&O Vital Signs Date Time Temp Pulse Resp B/P (MAP) Pulse Ox O2 Delivery O2 Flow Rate FiO2 12/08/17 08:00 96.6 81 20 110/69 (83) 0 12/08/17 04:00 97.9 89 18 121/71 (88) 98 12/08/17 00:40 80 16 120/70 (87) 98 12/08/17 00:40 98.0 12/07/17 20:40 97.3 76 16 119/73 (88) 98 12/07/17 17:40 98.1 75 20 107/86 (93) 12/07/17 17:15 97.6 76 16 109/74 (86) 100 12/07/17 16:45 85 20 108/64 (79) 100 12/07/17 16:44 97.8 12/07/17 16:30 20 100 12/07/17 16:30 78 107/72 (84) 12/07/17 16:15 85 16 134/87 (103) 12/07/17 16:15 99 12/07/17 16:00 99 110/68 (82) 12/07/17 16:00 16 98 12/07/17 15:45 103 16 108/64 (79) 100 12/07/17 15:35 105 105/58 (74) 12/07/17 15:35 97.6 12 100 12/07/17 14:11 97.6 12/07/17 14:08 18 12/07/17 14:00 79 127/81 (96) 12/07/17 13:31 83 113/67 (82) 12/07/17 13:01 89 122/74 (90) 12/07/17 12:53 16 12/07/17 12:30 97 108/70 (83) 12/07/17 12:00 121 131/74 (93) 12/07/17 11:39 18 12/07/17 11:37 98.3 12/07/17 11:30 94 116/75 (89) Result Diagram: 12/08/17 0837 Objective Remarks GENERAL: Well-nourished, well-developed patient. CARDIOVASCULAR: Regular rate and rhythm without murmurs, gallops, or rubs. RESPIRATORY: Breath sounds equal bilaterally. No accessory muscle use. ABDOMEN/GI: Abdomen soft, non-tender, bowel sounds present. Incision: Clean, dry and intact. Fundus: Firm, non-tender at umbilicus. GENITOURINARY: Light to moderate bleeding. EXTREMITIES: No cyanosis or edema, non-tender, without signs of DVT. Medications and IVs Current Medications Medications (Trade) Dose Ordered Sig/Nancy Route Start Time Stop Time Status Last Admin Lactated Ringer's 1,000 ml @ 125 mls/hr Q8H IV 12/06/17 21:44 12/07/17 08:43 Lactated Ringer's 1,000 ml @ 3,000 mls/hr Q20M PRN IV 12/06/17 21:44 Sodium Chloride 1,000 ml @ 100 mls/hr Q10H PRN IV 12/06/17 22:04 (Xylocaine 1% Inj (50 ml)) 0.1 ml UNSCH X1 PRN I-DERMAL 12/06/17 21:45 12/09/17 21:44 (Bicitra Liq) 30 ml LAB AID PO 12/06/17 21:45 12/10/17 21:44 (Zofran Inj) 4 mg Q6H PRN IV PUSH 12/06/17 21:45 12/07/17 18:04 (fentaNYL INJ) 50 mcg Q1H PRN IV PUSH 12/06/17 21:45 (fentaNYL INJ) 100 mcg Q1H PRN IV PUSH 12/06/17 21:45 (Xylocaine 1% Inj (50 ml)) 10 ml UNSCH X1 PRN INFIL 12/06/17 21:45 12/08/17 21:44 (Muri-Lube Oil) 10 ml UNSCH PRN TOPICAL 12/06/17 21:45 Fentanyl/ Bupivacaine HCl 100 ml @ 12 mls/hr TITRATE EPIDURAL 12/06/17 23:15 12/07/17 12:53 Oxytocin 500 ml @ 0 mls/hr TITRATE IV 12/07/17 12:00 12/07/17 13:01 Cefazolin Sodium/ Dextrose 50 ml @ 100 mls/hr LAB AID IV 12/07/17 14:30 12/11/17 14:29 (Bicitra Liq) 30 ml LAB AID PO 12/07/17 14:30 12/11/17 14:29 (Toradol Inj) 30 mg Q6H PRN IV PUSH 12/07/17 16:45 12/08/17 17:00 12/08/17 09:17 Lactated Ringer's 1,000 ml @ 100 mls/hr Q10H IV 12/07/17 17:00 12/08/17 12:59 12/07/17 21:54 (NS Flush) 2 ml UNSCH PRN IV FLUSH 12/07/17 17:00 (NS Flush) 2 ml UNSCH PRN IV FLUSH 12/07/17 17:00 (Percocet 5-325 Mg) 1 tab Q4H PRN PO 12/07/17 17:00 (Percocet 5-325 Mg) 2 tab Q4H PRN PO 12/07/17 17:00 12/08/17 09:17 (M-M-R Ii Inj) 0.5 ml ONCE ONCE SQ 12/08/17 16:00 12/08/17 16:01 (Boostrix Inj) 0.5 ml ONCE ONCE IM 12/08/17 16:00 12/08/17 16:01 12/08/17 03:39 Miscellaneous Information NO SYSTEMIC NARCOTICS TO BE GIVEN FO... UNSCH PRN .XX 12/07/17 17:15 12/08/17 17:14 (Narcan Inj) 0.4 mg UNSCH PRN IV PUSH 12/07/17 17:15 12/08/17 17:14 (Benadryl Inj) 25 mg Q6H PRN IV PUSH 12/07/17 17:15 12/08/17 17:14 12/07/17 21:55 (Benadryl) 50 mg Q6H PRN PO 12/07/17 17:15 12/08/17 17:14 Miscellaneous Information ALL NURSING DEPARTMENTS UNSCH PRN .XX 12/07/17 17:15 12/08/17 17:14 Assessment/Plan Problem List: (1) delivery, delivered, current hospitalization ICD Codes: O82 - Encounter for delivery without indication Plan: routine po care bJ Busby MD Dec 08, 2017 11:20
[2017-12-08 12:00] VITALS: BP 112/59; PULSE 101; RESP 20; TEMP 96.4; O2SAT 0
[2017-12-08] MEDS: IBUPROFEN 600 MG TAB PO PRN ×2 (15:22→21:05)
[2017-12-08] MEDS ORDERED: DIPHTH/TETANUS/ACEL PERTUSSIS (BOOSTER) 0.5 ML VIAL/PFS IM ONE (16:00)
[2017-12-08] MEDS ORDERED: MEASLES, MUMPS, RUBELLA VACCINE 0.5 ML VIAL SQ ONE (16:00)
[2017-12-08] MEDS: LACTATED RINGER'S 1000 ML INJ 1,000 ML IV SCH (19:21)
[2017-12-08 20:00] VITALS: BP 131/73; PULSE 97; RESP 20; TEMP 97.6
[2017-12-09] MEDS: oxyCODONE/ACETAMINOPHEN 5 MG/325 MG TAB PO PRN ×5 (01:42→21:54)
[2017-12-09] MEDS: IBUPROFEN 600 MG TAB PO PRN ×4 (03:45→21:54)
[2017-12-09] MEDS: ONDANSETRON HCL 4 MG/2 ML VIAL IV PUSH PRN (07:38)
[2017-12-09 09:30] VITALS: BP 113/73; PULSE 102; RESP 20; TEMP 97.4
[2017-12-09] MEDS: PROMETHAZINE/CODEINE 6.25 MG/10 MG/5 ML CUP PO PRN ×2 (17:19→21:54)
[2017-12-09 20:00] VITALS: BP 113/71; PULSE 94; RESP 18; TEMP 97.9
[2017-12-09] MEDS ORDERED: Promethazine/Codeine Liq PO (22:00)
[2017-12-09] MEDS ORDERED: OXYC1TAB63 PO (22:00)
[2017-12-09] MEDS ORDERED: IBUP-232 PO (22:00)
--- NOTE | 2017-12-09 22:06 | HHI.OB ---
Subjective Post Operative Day: 2 Remarks pain controlled, mod lochia, paulo po, +void, c/o cough Objective Vitals/I&O Vital Signs Date Time Temp Pulse Resp B/P (MAP) Pulse Ox O2 Delivery O2 Flow Rate FiO2 12/09/17 20:00 113/71 (85) 12/09/17 20:00 97.9 94 18 12/09/17 09:30 97.4 12/09/17 09:30 102 20 113/73 (86) Result Diagram: 12/08/17 0837 Objective Remarks GENERAL: Well-nourished, well-developed patient. CARDIOVASCULAR: Regular rate and rhythm without murmurs, gallops, or rubs. RESPIRATORY: Breath sounds equal bilaterally. No accessory muscle use. ABDOMEN/GI: Abdomen soft, non-tender, bowel sounds present. Incision: Clean, dry and intact. Fundus: Firm, non-tender at umbilicus. GENITOURINARY: Light to moderate bleeding. EXTREMITIES: No cyanosis or edema, non-tender, without signs of DVT. Medications and IVs Current Medications Medications (Trade) Dose Ordered Sig/Nancy Route Start Time Stop Time Status Last Admin Lactated Ringer's 1,000 ml @ 125 mls/hr Q8H IV 12/06/17 21:44 12/07/17 08:43 Lactated Ringer's 1,000 ml @ 3,000 mls/hr Q20M PRN IV 12/06/17 21:44 Sodium Chloride 1,000 ml @ 100 mls/hr Q10H PRN IV 12/06/17 22:04 (Bicitra Liq) 30 ml CARCASS SPLITTER PO 12/06/17 21:45 12/10/17 21:44 (Zofran Inj) 4 mg Q6H PRN IV PUSH 12/06/17 21:45 12/09/17 07:38 (fentaNYL INJ) 50 mcg Q1H PRN IV PUSH 12/06/17 21:45 (fentaNYL INJ) 100 mcg Q1H PRN IV PUSH 12/06/17 21:45 (Muri-Lube Oil) 10 ml UNSCH PRN TOPICAL 12/06/17 21:45 Fentanyl/ Bupivacaine HCl 100 ml @ 12 mls/hr TITRATE EPIDURAL 12/06/17 23:15 12/07/17 12:53 Oxytocin 500 ml @ 0 mls/hr TITRATE IV 12/07/17 12:00 12/07/17 13:01 Cefazolin Sodium/ Dextrose 50 ml @ 100 mls/hr CARCASS SPLITTER IV 12/07/17 14:30 12/11/17 14:29 (Bicitra Liq) 30 ml CARCASS SPLITTER PO 12/07/17 14:30 12/11/17 14:29 (NS Flush) 2 ml UNSCH PRN IV FLUSH 12/07/17 17:00 (NS Flush) 2 ml UNSCH PRN IV FLUSH 12/07/17 17:00 (Percocet 5-325 Mg) 1 tab Q4H PRN PO 12/07/17 17:00 (Percocet 5-325 Mg) 2 tab Q4H PRN PO 12/07/17 17:00 12/09/17 21:54 (Motrin) 600 mg Q6HR PRN PO 12/08/17 12:00 12/09/17 21:54 (Phenergan-Codeine Liq) 10 ml Q4H PRN PO 12/09/17 13:45 12/09/17 21:54 Assessment/Plan Problem List: (1) delivery, delivered, current hospitalization ICD Codes: O82 - Encounter for delivery without indication Plan: routine po care cough syrup rx given Jb Busby MD Dec 09, 2017 22:06
[2017-12-10] MEDS: IBUPROFEN 600 MG TAB PO PRN ×2 (05:22→11:57)
[2017-12-10] MEDS: oxyCODONE/ACETAMINOPHEN 5 MG/325 MG TAB PO PRN ×2 (05:22→11:58)
[2017-12-10] MEDS: PROMETHAZINE/CODEINE 6.25 MG/10 MG/5 ML CUP PO PRN (05:26)
[2017-12-10 08:00] VITALS: BP 112/59; PULSE 86; RESP 18; TEMP 98.5
--- NOTE | 2017-12-10 12:51 | HHI.DS ---
Admission Date Dec 06, 2017 at 21:46 Discharge Date: Dec 10, 2017 Admitting Diagnosis IUP @ Term, Labor Diagnosis: Delivery Date: Dec 07, 2017 : Repeat Reason: failed , hx of prior : Female, Single Brief History 32-year-old 2 para 1 at 38+ weeks gestation who reports having increasing contractions since 5 PM. She also thinks she may be leaking some fluid. She states that she was 3 cm dilated in the office yesterday with Dr. Busby. She denies bleeding. She reports good movement. Hospital Course pt was admitted in labor and desired TOLAC. she arrested at 8 cm and was consented for repeat . she did well and was voiding by POD 1, on POD 2 pt c/o cough and pain. by POD 3 pt was passing gas and had good pain control and was stable for d/c home. Pt Condition on Discharge: Stable Discharge Disposition: Discharge Home Discharge Instructions Diet Instructions: As Tolerated, No Restrictions Additional Diet Instructions: Drink at least 8 - 16 oz bottles of water a day Activities You Can Perform: Shower Only-No Bath Activities to Avoid: Prolonged Standing, Strenuous Activity, Sexual Activity Additional Activity Instruc.: No driving until off pain medications Do not lift anything heavier than your baby in an carrier Jb Busby MD Dec 10, 2017 12:51
== END 2017-12-10 13:30 | disposition home or self-care (01) | DRG 766 ==
LOC: HOBED 21:11 → H2EB 21:46 → H1EA 12-07 17:05
PROVIDERS: ADMIT Obstetrics & Gynecology; ATTEND Obstetrics & Gynecology
PROC: 3E0R3BZ Introduction of Anesthetic Agent into Spinal Canal, Percutaneous Approach (ICD-10-PCS; 2017-12-06)
PROC: 00HU33Z Insertion of Infusion Device into Spinal Canal, Percutaneous Approach (ICD-10-PCS; 2017-12-06)
PROC: 10D00Z1 Extraction of Products of Conception, Low, Open Approach (ICD-10-PCS; principal; 2017-12-07)
PROC: 10907ZC Drainage of Amniotic Fluid, Therapeutic from Products of Conception, Via Natural or Artificial Opening (ICD-10-PCS; 2017-12-07)
DX: O34.219 Maternal care for unspecified type scar from previous cesarean delivery (principal); O66.40 Failed trial of labor, unspecified; O62.2 Other uterine inertia; Z3A.38 38 weeks gestation of pregnancy; Z37.0 Single live birth; R05 Cough; Z23 Encounter for immunization
CPT/HCPCS: 80307; 81001; 84112; 85025; 86900; 86901; 87086; 90686; 90715; C1765; J0131; J0690; J1100; J1200; J1885; J2274; J2370; J2405; J2590; J7120; Q2038

== ENCOUNTER 2017-12-11 13:02 | Emergency (ER) | payer BC ==
[~2017-12-11] VITALS: Ht 162.6 cm; Wt 97.5 kg
[~2017-12-11 13:02] MED LIST changes: +IBUP-232 PO; +OXYC1TAB63 PO; +Promethazine/Codeine Liq PO; -ZOFR4TAB PO
[2017-12-11 13:03] VITALS: BP 125/73; PULSE 91; RESP 20; TEMP 98.8; O2SAT 96
--- NOTE | 2017-12-11 14:45 | RADRPT ---
EXAM DATE/TIME: 12/11/2017 13:43 [facility] COMPARISON: No previous studies available for comparison. INDICATIONS : Cough for 2 weeks. MEDICAL HISTORY : None. SURGICAL HISTORY : None. ENCOUNTER: Initial ACUITY: 2 weeks PAIN SCORE: 0/10 LOCATION: Bilateral chest FINDINGS: PA and lateral views of the chest demonstrate the lungs to be symmetrically aerated without evidence of mass, infiltrate or effusion. The cardiomediastinal contours are unremarkable. Osseous structure s are intact. CONCLUSION: 1. No acute cardiopulmonary disease. Ricardo Smith MD on December 11, 2017 at 14:42 Board Certified Radiologist. This report was verified electronically.
[2017-12-11 14:59] LABS: ALBUMIN 2.2 GM/DL (3.4-5.0); AST (GOT) 43 U/L (15-37); BICARBONATE 25.5 MEQ/L (21.0-32.0); BLOOD UREA NITROGEN 8 MG/DL (7-18); CALCIUM 8.9 MG/DL (8.5-10.1); CHLORIDE 100 MEQ/L (98-107); CREATININE 0.46 MG/DL (0.50-1.00); GLOMERULAR FILTRATION RATE 193 ML/MIN (>89); GLUCOSE,RANDOM 78 MG/DL (74-106); SODIUM (NA) 135 MEQ/L (136-145)
[2017-12-11 15:02] LABS: ALKALINE PHOSPHATASE 145 U/L (45-117); ALT (GPT) 33 U/L (10-53); TOTAL BILIRUBIN ADULT 0.4 MG/DL (0.2-1.0); TOTAL PROTEIN 7.5 GM/DL (6.4-8.2)
[2017-12-11 15:05] LABS: BACTERIA, URINE RARE /hpf; BILIRUBIN, URINE NEG (NEG); BLOOD, URINE MOD (NEG); GLUCOSE,URINE NEG (NEG); KETONE, URINE NEG (NEG); NITRITE,URINE NEG (NEG); SQUAMOUS EPITHELIAL CELL URINE <1 /hpf (0-5); TRANSITIONAL EPI CELLS, URINE <1 /hpf; URINE COLOR YELLOW (YELLW/STRAW); URINE LEUKOCYTE ESTERASE SMALL (NEG)
[2017-12-11 15:08] LABS: AUTOMATED NEUTROPHIL # 7.8 TH/MM3 (1.8-7.7); BASOPHIL % 0.2 % (0.0-2.0); EOSINOPHIL % 0.2 % (0.0-4.0); HEMATOCRIT 30.6 % (35.0-46.0); LYMPH % 5.4 % (9.0-44.0); LYMPHOCYTE # 0.5 TH/MM3 (1.0-4.8); MEAN CELL VOLUME 87.5 FL (80.0-100.0); MEAN CORPUSCULAR HEMOGLOBIN 28.7 PG (27.0-34.0); MEAN CORPUSCULAR HGB CONC 32.7 % (32.0-36.0); MEAN PLATELET VOLUME 8.7 FL (7.0-11.0); MONO % 7.6 % (0.0-8.0); MONOCYTE # 0.7 TH/MM3 (0-0.9); NEUT % 86.6 % (16.0-70.0); PLATELET COUNT 207 TH/MM3 (150-450); RED BLOOD COUNT 3.49 MIL/MM3 (4.00-5.30); RED CELL DISTRIBUTION WIDTH 14.7 % (11.6-17.2)
--- NOTE | 2017-12-11 16:16 | PD ---
HPI Chief Complaint: Cold / Flu Symptoms Time Seen by Provider: 15:50 Travel History International Travel<30 days: No Contact w/Intl Traveler<30days: No Traveled to known affect area: No History of Present Illness HPI 32-year-old , 4 days post by female presents to the ED for evaluation of less than 24-hour history of nonproductive cough, sinus congestion, clear rhinorrhea, subjective fever and chills. Gradual onset yesterday. Patient has not measured temperature at home. She denies chest pain , shortness of breath, nausea, vomiting. She endorses lower abdominal pain, rated 10/10, worsened by cough, also during on her Pfannenstiel incision. She denies discharge or bleeding from the wound. She endorses urinary urgency but denies dysuria or hematuria. She did receive this years flu vaccine. PFSH Past Medical History Cancer: No Cardiovascular Problems: Yes (MURMUR) Diabetes: No Diminished Hearing: No Endocrine: No Gastrointestinal Disorders: No Genitourinary: No Hepatitis: No Hiatal Hernia: No Hypertension: No Immune Disorder: No Musculoskeletal: No Neurologic: No Psychiatric: No Reproductive: No Respiratory: No Thyroid Disease: No ?: Not : 2 Para: 1 Ovarian Cysts: Yes Past Surgical History AICD: No Section: Yes (X1) Gynecologic Surgery: Yes (C SECTION) Joint Replacement: No Oral Surgery: Yes (WISDOM TEETH) Pacemaker: No Other Surgery: Yes Social History Alcohol Use: No Tobacco Use: No Substance Use: No Allergies-Medications (Allergen,Severity, Reaction): Coded Allergies: No Known Allergies (Verified Adverse Reaction, Unknown, 12/11/17) Reported Meds & Prescriptions Reported Meds & Active Scripts Active [Promethazine/Codeine Liq] 10 ML Soln 10 Ml PO Q4H PRN 5 Days Oxycodone-Acetaminophen 5-325 (Oxycodone HCl/Acetaminophen) 5 Mg-325 Mg Tablet 1 Tab PO Q4H PRN 10 Days Ibuprofen 600 Mg Tab 600 Mg PO Q6HR PRN 14 Days Reported Plus Iron 29-1 mg ( Vit-Iron Carbonyl) 29 Mg Iron-1 Mg Tab 1 Tab PO DAILY Review of Systems Except as stated in HPI: all other systems reviewed are Neg Physical Exam Narrative GENERAL: Well-nourished, well-developed AA female in NAD. SKIN: Focused skin assessment warm/dry. 8 cm Pfannenstiel incision with Steri- Strips in place. Mildly tender. No erythema, edema, fluctuance, bleeding, discharge noted. HEAD: Normocephalic. EYES: No scleral icterus. No injection or drainage. ENT: Pearly agrawal tympanic membranes with serous effusions bilaterally. Sinuses are bluish and boggy. Oropharynx with mild posterior erythema. Uvula midline. Airway patent. Tonsils 1+ bilaterally. No exudate NECK: Supple, trachea midline. No JVD or lymphadenopathy. CARDIOVASCULAR: Regular rate and rhythm without murmurs, gallops, or rubs. RESPIRATORY: Breath sounds clear and equal bilaterally. No accessory muscle use. GASTROINTESTINAL: Abdomen soft, nondistended. Tender to palpation over the Pfannenstiel incision. MUSCULOSKELETAL: No cyanosis, or edema. BACK: Nontender without obvious deformity. No CVA tenderness. Data Data Last Documented VS Vital Signs Date Time Temp Pulse Resp B/P (MAP) Pulse Ox O2 Delivery O2 Flow Rate FiO2 12/11/17 13:03 98.8 91 20 125/73 (90) 96 Room Air Orders Orders Complete Blood Count With Diff (12/11/17 13:23) Comprehensive Metabolic Panel (12/11/17 13:23) Influenzae A/B Antigen (12/11/17 13:23) Chest, Pa & Lat (12/11/17 13:23) Urinalysis - C+S If Indicated (12/11/17 13:24) Urine Culture (12/11/17 14:20) Ceftriaxone Inj (Rocephin Inj) (12/11/17 16:30) Lidocaine 1% Inj (Xylocaine 1% Inj) (12/11/17 16:45) Ed Discharge Order (12/11/17 17:07) Labs Laboratory Tests Test 12/11/17 14:20 White Blood Count 9.0 TH/MM3 Red Blood Count 3.49 MIL/MM3 Hemoglobin 10.0 GM/DL Hematocrit 30.6 % Mean Corpuscular Volume 87.5 FL Mean Corpuscular Hemoglobin 28.7 PG Mean Corpuscular Hemoglobin Concent 32.7 % Red Cell Distribution Width 14.7 % Platelet Count 207 TH/MM3 Mean Platelet Volume 8.7 FL Neutrophils (%) (Auto) 86.6 % Lymphocytes (%) (Auto) 5.4 % Monocytes (%) (Auto) 7.6 % Eosinophils (%) (Auto) 0.2 % Basophils (%) (Auto) 0.2 % Neutrophils # (Auto) 7.8 TH/MM3 Lymphocytes # (Auto) 0.5 TH/MM3 Monocytes # (Auto) 0.7 TH/MM3 Eosinophils # (Auto) 0.0 TH/MM3 Basophils # (Auto) 0.0 TH/MM3 CBC Comment DIFF FINAL Differential Comment Urine Color YELLOW Urine Turbidity CLEAR Urine pH 8.0 Urine Specific [place] 1.015 Urine Protein NEG mg/dL Urine Glucose (UA) NEG mg/dL Urine Ketones NEG mg/dL Urine Occult Blood MOD Urine Nitrite NEG Urine Bilirubin NEG Urine Urobilinogen LESS THAN 2.0 MG/DL Urine Leukocyte Esterase SMALL Urine RBC 29 /hpf Urine WBC 9 /hpf Urine Squamous Epithelial Cells <1 /hpf Urine Transitional Epithelial Cells <1 /hpf Urine Bacteria RARE /hpf Microscopic Urinalysis Comment CULTURE INDICATED Blood Urea Nitrogen 8 MG/DL Creatinine 0.46 MG/DL Random Glucose 78 MG/DL Total Protein 7.5 GM/DL Albumin 2.2 GM/DL Calcium Level 8.9 MG/DL Alkaline Phosphatase 145 U/L Aspartate Amino Transf (AST/SGOT) 43 U/L Alanine Aminotransferase (ALT/SGPT) 33 U/L Total Bilirubin 0.4 MG/DL Sodium Level 135 MEQ/L Potassium Level 3.9 MEQ/L Chloride Level 100 MEQ/L Carbon Dioxide Level 25.5 MEQ/L Anion Gap 10 MEQ/L Estimat Glomerular Filtration Rate 193 ML/MIN MDM Medical Decision Making Medical Screen Exam Complete: Yes Emergency Medical Condition: Yes Differential Diagnosis Viral syndrome versus pneumonia versus influenza versus UTI versus less likely DVT/PE versus other Narrative Course 32-year-old , 4 days post by female presents to the ED for evaluation of less than 24-hour history of nonproductive cough, sinus congestion, clear rhinorrhea, subjective fever and chills. She endorses urinary urgency but denies dysuria or hematuria. She did receive this years flu vaccine. Vitals reviewed. On exam the patient is nontoxic appearing. She does have bilateral serous effusions and mild posterior oropharyngeal erythema and tenderness around her Pfannenstiel without signs of infection. Chest x-ray negative for pneumonia. No concerning abnormalities in CBC or CMP. UA positive for bacteria. I looked through the patient's chart and she's had multiple episodes of positive bacteriuria that have never grown treatable UTI. However given her recent catheterization will treat. Patient is nursing her . Will treat with IM Rocephin here in the ED. Patient's instructed to pump and on for the next 18 hours. She should see the OPHTHALMIC TECHNICIAN for rectal conditions for OTC medications for symptomatic treatment of her viral syndrome. She indicated understanding of instructions and is agreeable a care plan. The patient is stable and discharged home. Diagnosis Primary Impression: Viral syndrome Additional Impression: UTI (urinary tract infection) Qualified Codes: N39.0 - Urinary tract infection, site not specified Referrals: Dredging Inspector Patient Instructions: General Instructions, Urinary Tract Infection in Women ( ED), Viral Syndrome (ED) Additional Instructions: Rest, hydrate. Pump and dump for the next 18 hours as discussed. Tylenol as needed for body aches and pains. Warm, steamy showers may help to release sinus congestion. Sleeping with a humidifier in the room may help to reduce cough. Call your stroke coordinator tomorrow for recommendations for symptomatic treatment of your viral syndrome. Follow-up with the stroke coordinator as planned. Return to the ED for any urgent or emergent medical condition. Med/Other Pt SpecificInfo: Prescription(s) given Disposition: 01 DISCHARGE HOME Condition: Stable Sera Young Dec 11, 2017 16:16
[2017-12-11] MEDS ORDERED: LIDOCAINE HCL 1% 50 ML VIAL IM ONE (16:30)
[2017-12-11] MEDS ORDERED: LIDOCAINE HCL 1% 20 ML VIAL INFIL ONE (16:45)
== END 2017-12-11 17:37 | disposition home or self-care (01) ==
LOC: NEPK 13:02
DX: B34.9 Viral infection, unspecified (principal); N39.0 Urinary tract infection, site not specified; B96.89 Other specified bacterial agents as the cause of diseases classified elsewhere
CPT/HCPCS: 71046; 80053; 81001; 85025; 87086; 87804; 96372; 99285; J0696

== ENCOUNTER 2018-05-12 17:51 | Emergency (ER) | payer OTHER, BC ==
[~2018-05-12] VITALS: Ht 162.6 cm; Wt 95.0 kg
[2018-05-12 18:00] VITALS: BP 109/61; PULSE 68; RESP 16; TEMP 98.2; O2SAT 100
[2018-05-12] MEDS ORDERED: METHOCARBAMOL 500 MG TAB PO ONE (19:45)
[2018-05-12] MEDS ORDERED: IBUPROFEN 800 MG TAB PO ONE (19:45)
[2018-05-12] MEDS ORDERED: ROBA500T PO (20:33)
[2018-05-12] MEDS ORDERED: DICL75TA PO (20:33)
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
== END 2018-05-12 21:48 | disposition home or self-care (01) ==
LOC: NEPK 17:51 → NEPD 21:48
DX: S20.211A Contusion of right front wall of thorax, initial encounter (principal); S13.4XXA Sprain of ligaments of cervical spine, initial encounter; M54.5 Low back pain; V43.62XA Car passenger injured in collision with other type car in traffic accident, initial encounter
CPT/HCPCS: 71045; 72100; 72125; 73030; 99284